=== PATIENT | female | born 1940 | race African-American/Black ===

== ENCOUNTER 2017-07-01 06:19 | Inpatient (IN) | payer BC ==
--- NOTE | 2017-07-01 06:29 | PDOC ---
Attending Attestation - Resident Resident Name: Giuliana Yarbrough - ED Attending Attestation I have performed the following: I have examined & evaluated the patient, The case was reviewed & discussed with the resident, I agree w/resident's findings & plan, Exceptions are as noted
[2017-07-01 06:39] VITALS: BMI 25.4
--- NOTE | 2017-07-01 08:04 | PDOC ---
History of Present Illness - General Chief Complaint: Constipation Stated Complaint: ABD PAIN Time Seen by Provider: 07/01/17 06:24 History Source: Patient - History of Present Illness Timing/Duration: reports: other Pain Radiation: reports: chest Past History - Past Medical History Allergies/Adverse Reactions: Allergies Allergy/AdvReac Type Severity Reaction Status Date / Time codeine Allergy Verified 07/01/17 06:35 lisinopril Allergy Verified 07/01/17 06:35 Sulfa (Sulfonamide Allergy Verified 07/01/17 06:35 Antibiotics) [Sulfa(Sulfonamide Antibiotics)] Home Medications: Ambulatory Orders Nifedipine [Nifedical Xl] 60 mg PO DAILY 08/13/14 Aspirin [ASA -] 81 mg PO DAILY 04/17/15 Atenolol/Chlorthalidone [Atenolol-Chlorthalidone 50-25] 1 each PO DAILY Glipizide Xl [Glucotrol Xl -] 2.5 mg PO DAILY 07/01/17 Simvastatin [Zocor -] 20 mg PO DAILY 07/01/17 Cancer: Yes (BREAST (Lt)) Cardiac Disorders: Yes (angina) Diabetes: Yes (NO MEDS) HTN: Yes Hypercholesterolemia: Yes - Psycho/Social/Smoking Cessation Hx Anxiety: No Suicidal Ideation: No Smoking Status: No Smoking History: Never smoked Have you smoked in the past 12 months: No Number of Cigarettes Smoked Daily: 20 If you are a former smoker, when did you quit?: 20 yrs ago Information on smoking cessation initiated: No Hx Alcohol Use: No Drug/Substance Use Hx: No Substance Use Type: None Hx Substance Use Treatment: No Review of Systems - Review of Systems Constitutional: No: Chills, Fever Respiratory: No: Cough, Shortness of Breath Cardiac (ROS): Yes: Chest Pain ABD/GI: Yes: Constipated. No: Blood Streaked Bowels, Diarrhea, Nausea, Vomiting , Tarry Stools : No: Dysuria *Physical Exam - Vital Signs Last Vital Signs Temp Pulse Resp BP Pulse Ox 98.0 F 70 18 153/89 99 07/01/17 06:35 07/01/17 06:35 07/01/17 06:35 07/01/17 06:35 07/01/17 06:35 - Physical Exam General Appearance: Yes: Appropriately Dressed. No: Apparent Distress HEENT: positive: Normal Voice Neck: positive: Supple Respiratory/Chest: positive: Lungs Clear, Normal Breath Sounds. negative: Respiratory Distress Cardiovascular: positive: Regular Rate, S1, S2 Gastrointestinal/Abdominal: positive: Soft. negative: Tender Musculoskeletal: negative: CVA Tenderness Extremity: positive: Normal Inspection Integumentary: positive: Dry, Warm Neurologic: positive: Fully Oriented, Alert, Normal Mood/Affect ED Treatment Course - LABORATORY CBC & Chemistry Diagram: 07/01/17 07:30 07/01/17 07:30 - RADIOLOGY Radiology Studies Ordered: Category Date Time Status ABDOMEN-KUB FLAT PLATE [RAD] Stat Radiology 07/01/17 07:23 Ordered CHEST PA & LAT [RAD] Stat Radiology 07/01/17 07:23 Ordered Medical Decision Making - Medical Decision Making 07/01/17 07:29 76 -year-old female, history of hypertension, HLD, NIDDM, CAD, NM, left breast cancer status post mastectomy, tobacco smoke, here with abdominal pain. Patient states yesterday she began experiencing diffuse abdominal pain radiating to chest and b/l upper extremities that worsened today at 4 AM, describes pain as a tightening sensation, 5 out of 10, intermittent and last for 5 minutes w/ no exacerbating/alleviating factors. Denies shortness of breath, diaphoresis, nausea, vomiting. No palpitations, leg pain or swelling. Patient states she is concerned because of her NM, but not certain if NM presented similarly. Patient also suffers from constipation occasionally and took a laxative yesterday. No hematochezia, melena or diarrhea See exam R/o ACS Unlikely PE or dissection Stable w/ unremarkable exam -ekg -cxr -labs -reassess 07/01/17 09:[address] depression (changed compared to EKG 2014) w/ trop of 0.1. Pt pain free currently and remains stable on monitor in ED. Will initiate treatment protocol for NSTEMI w/ the exception of BB as pt nadine to 57 on ekg. Rpt EKG in progress. Will consult w/ cards at this time. Of note, pt was admitted for CP in 2014 and had negative stress test and echo. As per records, patient has had multiple cardiac catheters with no stent placement, last time in 2009 at [facility]. 07/01/17 09:[address] Suggs of cards who agrees with treatment. Also requesting a dose of lisinopril in ED but informed that patient is allergic ( angioedema). Daron requesting that I fax initial and repeat EKG ([phone]). Of note, repeat EKG with similar pattern of ST depression, however depressions not as deep as initial EKG. Patient at some point became hypoxic to 90% on RA on monitor. Initiated oxygen w/ improvement. Will contact PMD and admit at this time 07/01/17 10:00 07/01/17 10:03 Elevated LFTs, new for pt. Congestive changes on CXR. BNP >2K, no old to compare. Will defer diuresis to inpt team/cards. Of note, lungs clear on exam and no edema 07/01/17 11:17 Case d/w Dr Harley and pt admitted to tele 07/01/17 11:19 *DC/Admit/Observation/Transfer Diagnosis at time of Disposition: NSTEMI (non-ST elevated myocardial infarction) Chest pain Qualifiers: Chest pain type: unspecified Qualified Code(s): R07.9 - Chest pain, unspecified - Discharge Dispostion Condition at time of disposition: Fair Admit: Yes
[2017-07-01 08:11] LABS: MCH 26.4 pg (25.7-33.7); MEAN CELL VOLUME 79.8 fl (80-96); MEAN PLT VOLUME 8.7 fl (7.5-11.1); PLATELET COUNT 250 K/MM3 (134-434); RDW 15.3 % (11.6-15.6); WHITE BLOOD COUNT 4.6 K/mm3 (4.0-10.0)
[2017-07-01 08:19] LABS: ALBUMIN 3.3 g/dl (3.4-5.0); ANION GAP 8 (8-16); BILIRUBIN,TOTAL 0.5 mg/dL (0.2-1.0); CALCIUM 8.9 mg/dL (8.5-10.1); CO2 29 mmol/L (21-32); CREATININE 0.8 mg/dL (0.55-1.02); GLUCOSE,RANDOM 109 mg/dL (74-106); SGPT/ALT 123 U/L (12-78); TOT PROT 6.9 g/dl (6.4-8.2)
[2017-07-01 08:21] LABS: ALK PHOS 110 U/L (45-117)
[2017-07-01 08:27] LABS: CPK 122 IU/L (26-192); SGOT/AST 122 U/L (15-37)
[2017-07-01] MEDS ORDERED: ASPIRIN 325 MG ENTERIC COATED TABLET (FP) PO ONE (08:46)
[2017-07-01] MEDS ORDERED: CLOPIDOGREL BISULFATE 300 MG TABLET PO ONE (08:53)
[2017-07-01] MEDS ORDERED: ATORVASTATIN CA 80 MG TABLET (FP) PO ONE (08:54)
[2017-07-01] MEDS ORDERED: METOPROLOL TARTRATE 50 MG TABLET (FP) PO ONE (08:55)
--- NOTE | 2017-07-01 08:59 | PDOC ---
*Physical Exam - Vital Signs Last Vital Signs Temp Pulse Resp BP Pulse Ox 98.0 F 70 18 153/89 99 07/01/17 06:35 07/01/17 06:35 07/01/17 06:35 07/01/17 06:35 07/01/17 06:49 Heart Score/ECG Review - History History: Moderately suspicious - Electrocardiogram EKG: Significant ST-depression - Age Age: >/= 65 - Risk Factors Risk Factors Heart Score: Yes Hx Hypercholesterolemia, Yes Hx Hypertension, Yes Hx Diabetes Based on the list above the patient has:: >/=3 risk factors or Hx atherosclerotic disease - Troponin Troponin: 1-3x normal limit - Score Heart Score - Total: 8 - ECG Impressions Comment:: 07/01/17 08:56 ST depressions inferiorly, no ST elevations, TWI inferolaterally not seen on prior EKG in 2014. intervals wnl. Rate 57. ED Treatment Course - LABORATORY CBC & Chemistry Diagram: 07/01/17 07:30 07/01/17 07:30 - ADDITIONAL ORDERS Additional order review: Laboratory Results 07/01/17 07/01/17 07:30 07:30 Sodium 140 Potassium 3.7 Chloride 103 Carbon Dioxide 29 Anion Gap 8 BUN 13 D Creatinine 0.8 Creat Clearance w eGFR > 60 Random Glucose 109 H Calcium 8.9 Total Bilirubin 0.5 D AST 122 H D ALT 123 H D Alkaline Phosphatase 110 D Creatine Kinase 122 Troponin I 0.10 H Total Protein 6.9 Albumin 3.3 L Blood Type O POSITIVE Antibody Screen Negative 07/01/17 07:30 RBC 4.03 MCV 79.8 L MCHC 33.0 RDW 15.3 MPV 8.7 Medical Decision Making - Medical Decision Making 07/01/17 08:56 76 F with HTN, DM, HLD, CAD/DC presents with epigastric burning radiating to her chest and arms. Pt now pain-free. EKG with new inferior/lateral TWI and ST depressions. Concerning for Acute DC. Low suspicion for dissection as pt with no active pain. No evidence of CHF on exam. - Labs, trops - repeat EKG - CXR - Admit *DC/Admit/Observation/Transfer Diagnosis at time of Disposition: NSTEMI (non-ST elevated myocardial infarction) Chest pain Qualifiers: Chest pain type: unspecified Qualified Code(s): R07.9 - Chest pain, unspecified - Discharge Dispostion Condition at time of disposition: Fair - Attestations Physician Attestion: 07/01/17 12:57 I, Dr. Deangelo Soto MD, attest that this document has been prepared under my direction and personally reviewed by me in its entirety. I further attest, that it accurately reflects all work, treatment, procedures and medical decision -making performed by me.
[2017-07-01] MEDS ORDERED: HEPARIN NA (PORCINE) 5,000 UNITS/ML 1ML VIAL IVPUSH PRN (09:00)
[2017-07-01] MEDS ORDERED: CLOPIDOGREL BISULFATE 300 MG TABLET ONE (09:07)
[2017-07-01] MEDS ORDERED: ASPIRIN 325 MG TABLET ONE (09:07)
[2017-07-01] MEDS ORDERED: ATORVASTATIN CA 80 MG TABLET (FP) ONE (09:08)
[2017-07-01] MEDS ORDERED: HEPARIN INFUSION - 500 ML IVPB ONE (09:15)
[2017-07-01] MEDS: HEPARIN INFUSION - 500 ML IVPB SCH ×2 (09:31→19:10)
--- NOTE | 2017-07-01 09:35 | CON.CARD ---
Consult Consult Specialty:: cardiology Reason for Consultation:: chest pain; hx VT - History of Present Illness History of Present Illness: 76 yr old black woman with PMHx VT (reportedly nonobstructive CAD on angiogram 2009, and normal stress MIBI 2014), HTN, hyperlipidemida, DM, now admitted with pressure-like chest pain. - History Source History Provided By: Patient, Family Member, Medical Record Limitations to Obtaining History: No Limitations - Past Medical History Cardio/Vascular: Yes: CAD, HTN, Hyperlipdemia, VT Renal/: No: Renal Failure Reproductive: Yes: Postmenopausal ...: No Endocrine: Yes: Diabetes Mellitus - Past Surgical History Past Surgical History: Yes: Mastectomy (Left) - Alcohol/Substance Use Hx Alcohol Use: No History of Substance Use: reports: None - Smoking History Smoking history: Never smoked Have you smoked in the past 12 months: No Aproximately how many cigarettes per day: 20 If you are a former smoker, when did you quit?: 20 yrs ago - Social History ADL: Independent Occupation: Disabled History of Recent Travel: No Home Medications - Allergies Allergies/Adverse Reactions: Allergies Allergy/AdvReac Type Severity Reaction Status Date / Time codeine Allergy Verified 07/01/17 06:35 lisinopril Allergy Verified 07/01/17 06:35 Sulfa (Sulfonamide Allergy Verified 07/01/17 06:35 Antibiotics) [Sulfa(Sulfonamide Antibiotics)] - Home Medications Home Medications: Ambulatory Orders Nifedipine [Nifedical Xl] 60 mg PO DAILY 08/13/14 Aspirin [ASA -] 81 mg PO DAILY 04/17/15 Atenolol/Chlorthalidone [Atenolol-Chlorthalidone 50-25] 1 each PO DAILY Glipizide Xl [Glucotrol Xl -] 2.5 mg PO DAILY 07/01/17 Simvastatin [Zocor -] 20 mg PO DAILY 07/01/17 Family Disease History - Family Disease History Family Disease History: Diabetes: Father ( age 50 from DM complications), Heart Disease: Mother ( age 72 CVA/VT), CA: Sister (3 sisters from breast, bone, and unknown) Review of Systems - Review of Systems Constitutional: reports: No Symptoms Eyes: reports: No Symptoms HENT: reports: No Symptoms Neck: reports: No Symptoms Cardiovascular: reports: Chest Pain, Shortness of Breath Respiratory: reports: SOB on Exertion Gastrointestinal: reports: Nausea Genitourinary: reports: No Symptoms Breasts: reports: No Symptoms Reported Musculoskeletal: reports: No Symptoms, Other (hx left leg fracture-->decreased ability to ambulate) Integumentary: reports: No Symptoms Neurological: reports: No Symptoms Psychiatric: reports: No Symptoms - Risk Factors Known Risk Factors: Yes: Age, Hypercholesterolemia, Hypertension, Physical Inactivity, Prior VT /Emb Stroke, Race Vital Signs: Vital Signs Temperature 98.0 F 07/01/17 06:35 Pulse Rate 70 07/01/17 06:35 Respiratory Rate 18 07/01/17 06:35 Blood Pressure 153/89 07/01/17 06:35 O2 Sat by Pulse Oximetry (%) 99 07/01/17 06:49 Constitutional: Yes: Calm Eyes: Yes: WNL HENT: Yes: WNL Neck: Yes: WNL Respiratory: Yes: Regular Gastrointestinal: Yes: Soft Renal/: No: Anuria Cardiovascular: Yes: Regular Rate and Rhythm JVD: No Carotid Bruit: No PMI: Non-Displaced Heart Sounds: Yes: S1, S2, S4 Murmur: Yes: Systolic Murmur, Grade 2 Musculoskeletal: Yes: Joint Stiffness (left ankle (s/p fracture years ago).) Extremities: Yes: WNL Edema: No Peripheral Pulses WNL: Yes Integumentary: Yes: WNL Neurological: Yes: WNL Psychiatric: Yes: WNL - Other Data Labs, Other Data: CBC, BMP 07/01/17 07:30 07/01/17 07:30 Troponin, BNP 07/01/17 07:30 Troponin I 0.10 H Troponin, BNP 07/01/17 07:30 Troponin I 0.10 H Prior Cardiac Procedures: Cardiac Catheterization Ejection Fraction %: LVEF > or = 40 % Imaging - Results Chest X-ray: Image Reviewed (no acute pathology) Problem List - Problems (1) Chest pain Assessment/Plan: Presently chest-pain free. EKG : ?new STT depression. TNI 0.1. Plan: ASA, clopidogrel, and IV heparin (or Lovenox). Statin (however, use lower dose, and follow already-elevated LFTS). Serial EKG and TNI. ECHO for LVEF, wall motion, valve status. TSH WNL. Pt has been on atenolol; mildly bradycardic. Add lisinopril (HTN; DM; ACS). Code(s): R07.9 - CHEST PAIN, UNSPECIFIED Qualifiers: Chest pain type: unspecified Qualified Code(s): R07.9 - Chest pain, unspecified (2) Diabetes mellitus Code(s): E11.9 - TYPE 2 DIABETES MELLITUS WITHOUT COMPLICATIONS (3) Elevated blood pressure Code(s): I10 - ESSENTIAL (PRIMARY) HYPERTENSION (4) Headache Code(s): R51 - HEADACHE (5) Hyperlipidemia Code(s): E78.5 - HYPERLIPIDEMIA, UNSPECIFIED (6) Elevated LFTs Assessment/Plan: f/u etiology. Pt nees statin, but lower dose, and watch LFT levels and workup. Code(s): R79.89 - OTHER SPECIFIED ABNORMAL FINDINGS OF BLOOD CHEMISTRY
--- NOTE | 2017-07-01 10:14 | EKG ---
Test Reason : Blood Pressure : / mmHG Vent. Rate : 057 BPM Atrial Rate : 057 BPM P-R Int : 202 ms QRS Dur : 096 ms QT Int : 514 ms P-R-T Axes : 069 -36 -86 degrees QTc Int : 500 ms SINUS BRADYCARDIA LEFT AXIS DEVIATION INCOMPLETE RIGHT BUNDLE BRANCH BLOCK SEPTAL INFARCT , AGE UNDETERMINED LEFT ATRIAL ENLARGEMENT ABNORMAL ECG WHEN COMPARED WITH ECG OF 18-APR-2015 ST-T ABNORMALITIES IN II IIIaVF V4-V6 COMPATIBLE WITH ISCHEMIA. REPEAT EKG IF CLINICALLY INDICATED Confirmed by GILBERTO PISANO MD ([id number]) on 07/01/2017 10:13:29 AM Referred By: Confirmed By:GILBERTO PISANO MD
--- NOTE | 2017-07-01 10:16 | EKG ---
Test Reason : Blood Pressure : / mmHG Vent. Rate : 057 BPM Atrial Rate : 057 BPM P-R Int : 202 ms QRS Dur : 100 ms QT Int : 504 ms P-R-T Axes : 068 -51 -79 degrees QTc Int : 490 ms SINUS BRADYCARDIA LEFT ANTERIOR FASCICULAR BLOCK LEFT ATRIAL ENLARGEMENT AGE UNDETERMINED ANTEROSEPTAL VT PROLONGED QT ABNORMAL ECG WHEN COMPARED WITH ECG OF 01-JUL-2017 08:15, NO SIGNIFICANT CHANGE WAS FOUND REPEAT EKG IF CLINICALLY INDICATED Confirmed by GILBERTO PISANO MD ([id number]) on 07/01/2017 10:15:57 AM Referred By: Confirmed By:GILBERTO PISANO MD
[2017-07-01 13:05] LABS: TROPONIN I 0.1 ng/ml (0.00-0.05)
--- NOTE | 2017-07-01 13:12 | HP ---
Admitting History and Physical - Primary Care Physician PCP: Manjula Harley - Admission Chief Complaint: chest pain History of Present Illness: ER HISTORY - Medical Decision Making 07/01/17 07:29 76 -year-old female, history of hypertension, HLD, NIDDM, CAD, MT, left breast cancer status post mastectomy, tobacco smoke, here with abdominal pain. Patient states yesterday she began experiencing diffuse abdominal pain radiating to chest and b/l upper extremities that worsened today at 4 AM, describes pain as a tightening sensation, 5 out of 10, intermittent and last for 5 minutes w/ no exacerbating/alleviating factors. Denies shortness of breath, diaphoresis, nausea, vomiting. No palpitations, leg pain or swelling. Patient states she is concerned because of her MT, but not certain if MT presented similarly. Patient also suffers from constipation occasionally and took a laxative yesterday. No hematochezia, melena or diarrhea Pt seen by me in ER C/O constipation and abdominal pain today which radiated to chest wall with SOB and tightness of chest No palpitations or dizziness Now she feels better Found to have NSTEMI , on heparin drip History Source: Patient - Past Medical History Cardiovascular: Yes: CAD, HTN, Hyperlipdemia, MT Heme/Onc: Yes: Cancer (Left Breast) Endocrine: Yes: Diabetes Mellitus - Past Surgical History Past Surgical History: Yes: Mastectomy (Left) - Smoking History Smoking history: Never smoked Have you smoked in the past 12 months: No Aproximately how many cigarettes per day: 20 If you are a former smoker, when did you quit?: 20 yrs ago - Alcohol/Substance Use Hx Alcohol Use: No History of Substance Use: reports: None - Social History ADL: Independent Occupation: Disabled History of Recent Travel: No Home Medications - Allergies Allergies/Adverse Reactions: Allergies Allergy/AdvReac Type Severity Reaction Status Date / Time codeine Allergy Verified 07/01/17 06:35 lisinopril Allergy Verified 07/01/17 06:35 Sulfa (Sulfonamide Allergy Verified 07/01/17 06:35 Antibiotics) [Sulfa(Sulfonamide Antibiotics)] - Home Medications Home Medications: Ambulatory Orders Nifedipine [Nifedical Xl] 60 mg PO DAILY 08/13/14 Aspirin [ASA -] 81 mg PO DAILY 04/17/15 Atenolol/Chlorthalidone [Atenolol-Chlorthalidone 50-25] 1 each PO DAILY Glipizide Xl [Glucotrol Xl -] 2.5 mg PO DAILY 07/01/17 Simvastatin [Zocor -] 20 mg PO DAILY 07/01/17 Family Disease History - Family Disease History Family Disease History: Diabetes: Father ( age 50 from DM complications), Heart Disease: Mother ( age 72 CVA/MT), CA: Sister (3 sisters from breast, bone, and unknown) Review of Systems - Review of Systems Constitutional: denies: Chills, Fever, Loss of Appetite, Weakness Cardiovascular: reports: Chest Pain, Shortness of Breath. denies: Palpitations Respiratory: denies: Cough Gastrointestinal: reports: Abdominal Pain, Constipation. denies: Nausea Physical Examination Vital Signs: Vital Signs Temperature 98.0 F 07/01/17 06:35 Pulse Rate 62 07/01/17 12:48 Respiratory Rate 14 07/01/17 12:48 Blood Pressure 140/65 07/01/17 12:48 O2 Sat by Pulse Oximetry (%) 97 07/01/17 12:48 Constitutional: Yes: No Distress, Calm Cardiovascular: Yes: Regular Rate and Rhythm Respiratory: Yes: Diminished Gastrointestinal: Yes: Normal Bowel Sounds, Soft. No: Distention, Tenderness Edema: No Psychiatric: Yes: Alert, Oriented Labs: Laboratory Last Values WBC 4.6 K/mm3 (4.0-10.0) 07/01/17 07:30 RBC 4.03 M/mm3 (3.60-5.2) 07/01/17 07:30 Hgb 10.6 GM/dL (10.7-15.3) L 07/01/17 07:30 Hct 32.1 % (32.4-45.2) L 07/01/17 07:30 MCV 79.8 fl (80-96) L 07/01/17 07:30 MCH 26.4 pg (25.7-33.7) 07/01/17 07:30 MCHC 33.0 g/dl (32.0-36.0) 07/01/17 07:30 RDW 15.3 % (11.6-15.6) 07/01/17 07:30 Plt Count 250 K/MM3 (134-434) 07/01/17 07:30 MPV 8.7 fl (7.5-11.1) 07/01/17 07:30 Sodium 140 mmol/L (136-145) 07/01/17 07:30 Potassium 3.7 mmol/L (3.5-5.1) 07/01/17 07:30 Chloride 103 mmol/L (98-107) 07/01/17 07:30 Carbon Dioxide 29 mmol/L (21-32) 07/01/17 07:30 Anion Gap 8 (8-16) 07/01/17 07:30 BUN 13 mg/dL (7-18) D 07/01/17 07:30 Creatinine 0.8 mg/dL (0.55-1.02) 07/01/17 07:30 Creat Clearance w eGFR > 60 (>60) 07/01/17 07:30 POC Glucometer 93.88594 UNITS (()) 07/01/17 12:29 Random Glucose 109 mg/dL (74-106) H 07/01/17 07:30 Calcium 8.9 mg/dL (8.5-10.1) 07/01/17 07:30 Total Bilirubin 0.5 mg/dL (0.2-1.0) D 07/01/17 07:30 AST 122 U/L (15-37) H D 07/01/17 07:30 ALT 123 U/L (12-78) H D 07/01/17 07:30 Alkaline Phosphatase 110 U/L (45-117) D 07/01/17 07:30 Creatine Kinase 86 IU/L (26-192) 07/01/17 12:25 Troponin I 0.10 ng/ml (0.00-0.05) H 07/01/17 12:25 B-Natriuretic Peptide 2502.51 pg/ml (5-450) H 07/01/17 07:30 Total Protein 6.9 g/dl (6.4-8.2) 07/01/17 07:30 Albumin 3.3 g/dl (3.4-5.0) L 07/01/17 07:30 Blood Type O POSITIVE 07/01/17 07:30 Antibody Screen Negative 07/01/17 07:30 Imaging - Results Chest X-ray: Image Reviewed (interstitial lung markings) X-ray: Report Reviewed (xray abd- no obstruction) EKG: Image Reviewed (ST depressions diffuse) Problem List - Problems (1) Chest pain Code(s): R07.9 - CHEST PAIN, UNSPECIFIED Qualifiers: Chest pain type: unspecified Qualified Code(s): R07.9 - Chest pain, unspecified (2) NSTEMI (non-ST elevated myocardial infarction) Code(s): I21.4 - NON-ST ELEVATION (NSTEMI) MYOCARDIAL INFARCTION (3) Diabetes mellitus Code(s): E11.9 - TYPE 2 DIABETES MELLITUS WITHOUT COMPLICATIONS (4) Elevated LFTs Code(s): R79.89 - OTHER SPECIFIED ABNORMAL FINDINGS OF BLOOD CHEMISTRY Assessment/Plan PLAN Check cardiac enzymes Admit to telemetry On Heparin drip Cardiology eval Check sono abdomen for elevated LFT, check hepatitis profile Echo ordered check CBC on Heparin drip continue with home meds - check BGM , sliding scale DVT px-- Heparin infusion Time spent-- 40 min in assessment, plan and documentation
[2017-07-01 16:44] LABS: INR 1.12 (0.82-1.09); PROTHROMBIN TIME (PATIENT) 12.3 SEC (9.98-11.88)
[2017-07-01] MEDS: INSULIN SLIDING SCALE (NOVOLOG) 1 VIAL SQ SCH (16:53)
[2017-07-01 18:35] LABS: TROPONIN I 0.09 ng/ml (0.00-0.05)
[2017-07-01] MEDS: PANTOPRAZOLE 40 MG TABLET (FP) PO SCH (18:36)
[2017-07-01] MEDS: MAG HYDROX/AL HYDROX/SIMETH 30 ML UNIT-DOSE CUP PO SCH (18:36)
[2017-07-01] MEDS: ATORVASTATIN CA 10 MG TABLET (FP) PO SCH (21:15)
[2017-07-02] MEDS: MAG HYDROX/AL HYDROX/SIMETH 30 ML UNIT-DOSE CUP PO SCH ×4 (00:36→17:05)
[2017-07-02 00:56] LABS: TROPONIN I 0.18 ng/ml (0.00-0.05)
[2017-07-02] MEDS ORDERED: HEPARIN NA (PORCINE) 5,000 UNITS/ML 1ML VIAL IVPUSH PRN (02:01)
[2017-07-02] MEDS: HEPARIN INFUSION - 500 ML IVPB SCH ×4 (02:02→23:49)
[2017-07-02] MEDS: INSULIN SLIDING SCALE (NOVOLOG) 1 VIAL SQ SCH ×3 (06:21→16:43)
[2017-07-02] MEDS: glipiZIDE-XL 2.5 MG TAB.ER.24 PO SCH (06:52)
[2017-07-02 09:31] LABS: FREE T4 1.16 ng/dl (0.76-1.46); THYROID STIMULATING HORMONE 0.94 uIU/ml (0.358-3.74); TROPONIN I 0.12 ng/ml (0.00-0.05)
[2017-07-02] MEDS ORDERED: PT OWN MED DRAWER 7, Y5N ONE (09:42)
[2017-07-02] MEDS: NIFEdipine E.R 60 MG TABLET (UD) PO SCH (09:44)
[2017-07-02] MEDS: ASPIRIN 81 MG CHEWABLE TABLETS PO SCH (09:44)
[2017-07-02] MEDS: ATENOLOL 50 MG TABLET (FP) PO SCH ×2 (09:44→13:45)
[2017-07-02] MEDS: PANTOPRAZOLE 40 MG TABLET (FP) PO SCH (09:44)
[2017-07-02] MEDS ORDERED: PATIENT'S OWN MEDICATION (NON-FORMULARY) (Atenolol/Chlorthalidone [Atenolol-Chlorthalidone PO SCH (10:00)
[2017-07-02] MEDS ORDERED: WATER IVPB ONE (10:30)
[2017-07-02] MEDS ORDERED: DIPYRIDAMOLE STRESS TEST IVPB ONE (10:30)
[2017-07-02] MEDS ORDERED: DEXTROSE 5% IVPB ONE (10:30)
--- NOTE | 2017-07-02 12:42 | PN ---
Progress Note, Physician Chief Complaint: No distress Underwent stress test today - Current Medication List Current Medications: Active Medications Al Hydroxide/Mg Hydroxide (Mylanta Oral Suspension -) 30 ml PO Q6HPO [facility] Last Admin: 07/02/17 06:14 Dose: 30 ml Aspirin (Asa -) 81 mg PO DAILY [facility] Last Admin: 07/02/17 09:44 Dose: 81 mg Atenolol (Tenormin -) 50 mg PO DAILY [facility] Atorvastatin Calcium (Lipitor -) 10 mg PO HS [facility] Last Admin: 07/01/17 21:15 Dose: 10 mg Chlorthalidone (Hygroton -) 25 mg PO DAILY [facility] Glipizide (Glucotrol Xl -) 2.5 mg PO DAILY@0700 [facility] Last Admin: 07/02/17 06:52 Dose: 2.5 mg Heparin Sodium (Porcine) (Heparin -) 4,000 unit IVPUSH PRN PRN PRN Reason: Heparin Heparin Sodium (Porcine) (Heparin -) 5,000 unit IVPUSH PRN PRN Last Admin: 07/02/17 02:06 Dose: 5,000 unit Heparin Sodium (Porcine) (Heparin -) 1,000 unit IVPUSH PRN PRN Heparin Sodium/Dextrose (Heparin Infusion -) 500 mls @ 16 mls/hr IVPB TITR SHAUN ; 800 UNITS/HR PRN Reason: Protocol Last Admin: 07/02/17 02:02 Dose: 13 mls/hr Insulin Aspart (Novolog Vial Sliding Scale -) 1 vial SQ TIDAC [facility] PRN Reason: Protocol Last Admin: 07/02/17 06:21 Dose: Not Given Nifedipine (Procardia Xl -) 60 mg PO DAILY [facility] Last Admin: 07/02/17 09:44 Dose: 60 mg Pantoprazole Sodium (Protonix -) 40 mg PO DAILY [facility] Last Admin: 07/02/17 09:44 Dose: 40 mg - Objective Vital Signs: Vital Signs Temperature 97.9 F 07/02/17 06:00 Pulse Rate 73 07/02/17 06:00 Respiratory Rate 20 07/02/17 06:00 Blood Pressure 142/68 07/02/17 06:00 O2 Sat by Pulse Oximetry (%) 93 L 07/01/17 20:22 Constitutional: Yes: No Distress Cardiovascular: Yes: Regular Rate and Rhythm Respiratory: Yes: CTA Bilaterally Gastrointestinal: Yes: Normal Bowel Sounds, Soft, Abdomen, Obese. No: Tenderness Edema: No Neurological: Yes: Alert, Oriented Labs: INR, PTT INR 1.12 (0.82-1.09) 07/01/17 15:34 Problem List - Problems (1) Chest pain Code(s): R07.9 - CHEST PAIN, UNSPECIFIED Qualifiers: Chest pain type: unspecified Qualified Code(s): R07.9 - Chest pain, unspecified (2) NSTEMI (non-ST elevated myocardial infarction) Code(s): I21.4 - NON-ST ELEVATION (NSTEMI) MYOCARDIAL INFARCTION (3) Diabetes mellitus Code(s): E11.9 - TYPE 2 DIABETES MELLITUS WITHOUT COMPLICATIONS (4) Elevated LFTs Code(s): R79.89 - OTHER SPECIFIED ABNORMAL FINDINGS OF BLOOD CHEMISTRY Assessment/Plan PLAN cardiac enzymes noted, decreased trend telemetry Off Heparin drip per cardiology-- awaiting stress test results Cardiology eval appreciated sono abdomen for elevated LFT-- noted hepatitis profile- pending Echo d/w pt DVT px-- Heparin infusion
[2017-07-02] MEDS: CHLORTHALIDONE 25 MG TABLET PO SCH (13:44)
[2017-07-02] MEDS ORDERED: POLYETHYLENE GLYCOL 3350 119 GM BTL PO PRN (13:48)
[2017-07-02] MEDS: HEPARIN NA (PORCINE) 5,000 UNITS/ML 1ML VIAL IVPUSH PRN (14:23)
[2017-07-02] MEDS: ATORVASTATIN CA 10 MG TABLET (FP) PO SCH (23:32)
[2017-07-03] MEDS: glipiZIDE-XL 2.5 MG TAB.ER.24 PO SCH (06:11)
[2017-07-03] MEDS: INSULIN SLIDING SCALE (NOVOLOG) 1 VIAL SQ SCH ×2 (06:11→11:55)
[2017-07-03] MEDS: MAG HYDROX/AL HYDROX/SIMETH 30 ML UNIT-DOSE CUP PO SCH ×3 (06:11→11:56)
[2017-07-03 07:43] LABS: ALBUMIN 3.5 g/dl (3.4-5.0); ALK PHOS 94 U/L (45-117); ANION GAP 9 (8-16); BILIRUBIN,TOTAL 0.9 mg/dL (0.2-1.0); CALCIUM 8.8 mg/dL (8.5-10.1); CO2 32 mmol/L (21-32); CREATININE 0.9 mg/dL (0.55-1.02); GLUCOSE,RANDOM 107 mg/dL (74-106); SGOT/AST 40 U/L (15-37); SGPT/ALT 75 U/L (12-78); TOT PROT 7.3 g/dl (6.4-8.2)
[2017-07-03 08:22] LABS: MCH 26.4 pg (25.7-33.7); MCHC 33.2 g/dl (32.0-36.0); MEAN CELL VOLUME 79.5 fl (80-96); PLATELET COUNT 277 K/MM3 (134-434); RDW 14.9 % (11.6-15.6); WHITE BLOOD COUNT 6.6 K/mm3 (4.0-10.0)
--- NOTE | 2017-07-03 09:01 | PN ---
Progress Note, Physician Chief Complaint: Pt denies chest pain or dyspnea. History of Present Illness: 76 yr old black woman with PMHx MT (reportedly nonobstructive CAD on angiogram 2009, and normal stress MIBI 2014), HTN, hyperlipidemida, DM, now admitted with pressure-like chest pain. - Current Medication List Current Medications: Active Medications Al Hydroxide/Mg Hydroxide (Mylanta Oral Suspension -) 30 ml PO Q6HPO [facility] Last Admin: 07/03/17 06:11 Dose: Not Given Aspirin (Asa -) 81 mg PO DAILY [facility] Last Admin: 07/02/17 09:44 Dose: 81 mg Atenolol (Tenormin -) 50 mg PO DAILY [facility] Last Admin: 07/02/17 13:45 Dose: 50 mg Atorvastatin Calcium (Lipitor -) 10 mg PO HS [facility] Last Admin: 07/02/17 23:32 Dose: 10 mg Chlorthalidone (Hygroton -) 25 mg PO DAILY [facility] Last Admin: 07/02/17 13:44 Dose: 25 mg Glipizide (Glucotrol Xl -) 2.5 mg PO DAILY@0700 [facility] Last Admin: 07/03/17 06:11 Dose: Not Given Heparin Sodium (Porcine) (Heparin -) 4,000 unit IVPUSH PRN PRN PRN Reason: Heparin Heparin Sodium (Porcine) (Heparin -) 5,000 unit IVPUSH PRN PRN Last Admin: 07/02/17 02:06 Dose: 5,000 unit Heparin Sodium (Porcine) (Heparin -) 1,000 unit IVPUSH PRN PRN Last Admin: 07/02/17 14:23 Dose: 1,000 unit Heparin Sodium/Dextrose (Heparin Infusion -) 500 mls @ 16 mls/hr IVPB TITR SHAUN ; 800 UNITS/HR PRN Reason: Protocol Last Admin: 07/02/17 23:49 Dose: Not Given Insulin Aspart (Novolog Vial Sliding Scale -) 1 vial SQ TIDAC [facility] PRN Reason: Protocol Last Admin: 07/03/17 06:11 Dose: Not Given Nifedipine (Procardia Xl -) 60 mg PO DAILY [facility] Last Admin: 07/02/17 09:44 Dose: 60 mg Pantoprazole Sodium (Protonix -) 40 mg PO DAILY [facility] Last Admin: 07/02/17 09:44 Dose: 40 mg Polyethylene Glycol (Miralax (For Daily Use) -) 17 gm PO DAILY PRN PRN Reason: CONSTIPATION - Objective Vital Signs: Vital Signs Temperature 98.3 F 07/03/17 06:00 Pulse Rate 64 07/03/17 06:00 Respiratory Rate 18 07/03/17 06:00 Blood Pressure 130/57 07/03/17 06:00 O2 Sat by Pulse Oximetry (%) 94 L 07/02/17 21:00 Constitutional: Yes: Calm Eyes: Yes: WNL HENT: Yes: WNL Neck: Yes: WNL Cardiovascular: Yes: Regular Rate and Rhythm Respiratory: Yes: Regular Gastrointestinal: Yes: Soft ...Rectal Exam: Yes: Deferred Genitourinary: No: Anuria Breast(s): Yes: WNL Musculoskeletal: Yes: WNL Extremities: Yes: WNL Edema: No Peripheral Pulses WNL: Yes Integumentary: Yes: WNL Neurological: Yes: WNL Psychiatric: Yes: WNL Labs: CBC, BMP 07/03/17 05:35 07/03/17 05:35 INR, PTT INR 1.12 (0.82-1.09) 07/01/17 15:34 Problem List - Problems (1) Chest pain Assessment/Plan: Stress Persantine MIBI: myocardial ischemia (moderately intense, moderate area of the juan manuel-apical wall); gated studies showed preserved LVEF. TNI 0.1-->0.18. Pt agrees to undergo coronary angiogram. Pt's son is at bedside. ECHO: normal LVEF; abnormal diastolic compliance; moderate MR; mild-moderate TX ; severe TR, with severe pulmonary HTN. Code(s): R07.9 - CHEST PAIN, UNSPECIFIED Qualifiers: Chest pain type: unspecified Qualified Code(s): R07.9 - Chest pain, unspecified (2) Diabetes mellitus Code(s): E11.9 - TYPE 2 DIABETES MELLITUS WITHOUT COMPLICATIONS (3) Elevated blood pressure Code(s): I10 - ESSENTIAL (PRIMARY) HYPERTENSION (4) Headache Code(s): R51 - HEADACHE (5) Hyperlipidemia Code(s): E78.5 - HYPERLIPIDEMIA, UNSPECIFIED (6) Elevated LFTs Code(s): R79.89 - OTHER SPECIFIED ABNORMAL FINDINGS OF BLOOD CHEMISTRY
[2017-07-03] MEDS ORDERED: PT OWN MED DRAWER 7, Y5N ONE (09:09)
[2017-07-03 09:45] LABS: MAGNESIUM 2.4 mg/dL (1.8-2.4)
[2017-07-03 10:44] VITALS: BP 108/60; PULSE 68; TEMP 98.2
[2017-07-03] MEDS ORDERED: CLOPIDOGREL BISULFATE 75 MG TABLET (FP) PO SCH (10:45)
[2017-07-03] MEDS: HEPARIN NA (PORCINE) 5,000 UNITS/ML 1ML VIAL IVPUSH PRN (10:48)
[2017-07-03] MEDS: HEPARIN INFUSION - 500 ML IVPB SCH (10:48)
[2017-07-03] MEDS: PANTOPRAZOLE 40 MG TABLET (FP) PO SCH (10:49)
[2017-07-03] MEDS: ASPIRIN 81 MG CHEWABLE TABLETS PO SCH (10:49)
[2017-07-03] MEDS: CHLORTHALIDONE 25 MG TABLET PO SCH (10:49)
[2017-07-03] MEDS: ATENOLOL 50 MG TABLET (FP) PO SCH (10:49)
[2017-07-03] MEDS: NIFEdipine E.R 60 MG TABLET (UD) PO SCH (10:49)
[2017-07-03] MEDS ORDERED: POTASSIUM CHLORIDE TABS 20 MEQ TABLET.ER (FP) PO ONE (12:00)
--- NOTE | 2017-07-03 13:52 | DS ---
Physical Examination Vital Signs: Vital Signs Temperature 98.2 F 07/03/17 10:00 Pulse Rate 68 07/03/17 10:00 Respiratory Rate 16 07/03/17 10:00 Blood Pressure 108/60 07/03/17 10:00 O2 Sat by Pulse Oximetry (%) 95 07/03/17 09:00 Constitutional: Yes: No Distress, Calm Cardiovascular: Yes: Regular Rate and Rhythm Respiratory: Yes: CTA Bilaterally Gastrointestinal: Yes: Normal Bowel Sounds, Soft. No: Distention, Tenderness Edema: No Labs: CBC, BMP 07/03/17 05:35 07/03/17 05:35 Discharge Summary Reason For Visit: NON-ST ELEVATION (NSTEMI), MYOCARDIAL INFARCTION Current Active Problems Chest pain (Acute) Elevated LFTs (Acute) NSTEMI (non-ST elevated myocardial infarction) (Acute) Hospital Course: ADmitted for abdominal pain and chest pain Found to have NSTEMI Started o Heparin drip Seen by cardiology Stress test abnormal-- transferred to [facility] for cardiac cath Condition: Fair - Instructions Disposition: TRANSFER ACUTE CARE/OTHER HOSP - Home Medications Comprehensive Discharge Medication List: Ambulatory Orders Nifedipine [Nifedical Xl] 60 mg PO DAILY 08/13/14 Aspirin [ASA -] 81 mg PO DAILY 04/17/15 Atenolol/Chlorthalidone [Atenolol-Chlorthalidone 50-25] 1 each PO DAILY Glipizide Xl [Glucotrol Xl -] 2.5 mg PO DAILY 07/01/17 Simvastatin [Zocor -] 20 mg PO DAILY 07/01/17
[2017-07-04 00:06] LABS: HEP B SURFACE AB Non Reactive (.)
== END 2017-07-03 12:14 | disposition short-term general hospital (02) | DRG 282 ==
LOC: JER 06:19 → JERBED 11:17 → J4W 15:58
PROVIDERS: ADMIT Internal Medicine; ATTEND Internal Medicine
DX: I21.4 Non-ST elevation (NSTEMI) myocardial infarction (principal); I25.10 Atherosclerotic heart disease of native coronary artery without angina pectoris; E78.4 Other hyperlipidemia; I10 Essential (primary) hypertension; E11.9 Type 2 diabetes mellitus without complications; I25.2 Old myocardial infarction; R10.9 Unspecified abdominal pain; I24.9 Acute ischemic heart disease, unspecified; F17.210 Nicotine dependence, cigarettes, uncomplicated; N95.8 Other specified menopausal and perimenopausal disorders; R51 Headache; R79.89 Other specified abnormal findings of blood chemistry; I27.2 Other secondary pulmonary hypertension; I08.1 Rheumatic disorders of both mitral and tricuspid valves; Z85.3 Personal history of malignant neoplasm of breast
CPT/HCPCS: 36415; 71020-TC; 74000-TC; 76705-TC; 78452-TC; 80053; 80061; 82977; 83721; 83735; 83880; 84439; 84443; 84484; 85027; 85610; 85730; 86704; 86706; 86708; 86803; 86850; 86900; 86901; 87340; 93005; 93010; 93017; 93306-TC; 99284-25; A9502; J1644

== ENCOUNTER 2017-10-17 14:17 | Emergency (ER) | payer BC, OTHER ==
[2017-10-17 14:44] VITALS: TEMP 97.9; BMI 25.4
--- NOTE | 2017-10-17 14:49 | PDOC ---
Rapid Medical Evaluation Chief Complaint: Lightheaded Time Seen by Provider: 10/17/17 14:46 Medical Evaluation: Allergies Allergy/AdvReac Type Severity Reaction Status Date / Time codeine Allergy Verified 10/17/17 14:40 lisinopril Allergy Verified 10/17/17 14:40 Sulfa (Sulfonamide Allergy Verified 10/17/17 14:40 Antibiotics) [Sulfa(Sulfonamide Antibiotics)] Vital Signs Temp Pulse Resp BP Pulse Ox 97.9 F 76 19 147/73 97 10/17/17 14:41 10/17/17 14:41 10/17/17 14:41 10/17/17 14:41 10/17/17 14:41 10/17/17 14:46 I performed a brief in-person evaluation of this patient. The patient presents with a chief complaint of: right shoulder pain x 3 weeks. Reports history of bursitis in that shoulder, states pain with movement of the arm. Denies injury or heavy lifting. Last treated with cortisone shots Pertinent physical exam findings: NAD lungs: cta bilat heart: s1s2 ext: right shoulder +ttp, able to ROM, no crepitus I have ordered the following: xray of right shoulder analgesia The patient will proceed to the Ed for further evaluation Discharge Disposition - Referrals Referrals: Manjula Harley MD [Primary Care Provider] - - Patient Instructions - Post Discharge Activity
--- NOTE | 2017-10-17 16:52 | PDOC ---
History of Present Illness - General Chief Complaint: Lightheaded Stated Complaint: DIZZINESS,SHOULDER PAIN Time Seen by Provider: 10/17/17 14:46 History Source: Patient Exam Limitations: No Limitations - History of Present Illness Initial Comments: This is a 76 YOF with h/o CHF (last exacerbation 2 months ago at [facility] and on Lasix), NIDDM (on glipizide), and HTN (on amlodipine) who presents for pre- syncopal episode at 1:30 pm. She notes having stood up from a meeting and walked over to get onto the bus when she had a fleeting sensation of lightheadedness and feeling like she may faint. She did not lose consciousness, lose her balance, fall, or sustain any injury as a result of this episode. She denies any concurrent chest pain, SOB, palpitations, numbness, tingling, weakness, vision trouble, or other symptoms during this episode. She also denies any recent fever, chills, nausea, vomiting, diarrhea, burning on urination, hematuria, black/bloody stool, or other symptoms. She has had similar prior episodes an unknown amount of time ago and states she does not know why she had these either. As a secondary complaint, the patient states she has been having exacerbated chronic right shoulder pain which has been keeping her from sleeping as well over the past three weeks. She has previously gotten steroid injections from her PMD for this same pain. Past History - Past Medical History Allergies/Adverse Reactions: Allergies Allergy/AdvReac Type Severity Reaction Status Date / Time codeine Allergy Verified 10/17/17 14:40 lisinopril Allergy Verified 10/17/17 14:40 Sulfa (Sulfonamide Allergy Verified 10/17/17 14:40 Antibiotics) [Sulfa(Sulfonamide Antibiotics)] Home Medications: Ambulatory Orders Aspirin [ASA -] 81 mg PO DAILY 04/17/15 Glipizide Xl [Glucotrol Xl -] 2.5 mg PO DAILY 07/01/17 Simvastatin [Zocor -] 20 mg PO DAILY 07/01/17 Amlodipine Besylate [Norvasc -] 5 mg PO DAILY 10/17/17 Cancer: Yes (BREAST (Lt)) Cardiac Disorders: Yes (angina) COPD: No Diabetes: Yes HTN: Yes Hypercholesterolemia: Yes - Suicide/Smoking/Psychosocial Hx Smoking Status: No Smoking History: Former smoker Have you smoked in the past 12 months: No Number of Cigarettes Smoked Daily: 20 If you are a former smoker, when did you quit?: 20 yrs ago Information on smoking cessation initiated: No Hx Alcohol Use: No Drug/Substance Use Hx: No Substance Use Type: None Hx Substance Use Treatment: No Review of Systems - Review of Systems Able to Perform ROS?: Yes Constitutional: No: Chills, Fever, Unexplained wgt Loss HEENTM: No: Nose Congestion, Throat Pain Respiratory: No: Cough, Shortness of Breath Cardiac (ROS): No: Chest Pain, Palpitations ABD/GI: No: Constipated, Diarrhea, Nausea, Vomiting : No: Burning, Dysuria Musculoskeletal: No: Back Pain, Neck Pain Integumentary: No: Bruising, Rash Neurological: Yes: Dizziness (lightheaded). No: Headache, Numbness, Tingling, Weakness Endocrine: No: Unexplained Weight Gain, Unexplained Weight Loss *Physical Exam - Vital Signs Last Vital Signs Temp Pulse Resp BP Pulse Ox 97.9 F 52 L 19 172/73 97 10/17/17 14:41 10/17/17 17:41 10/17/17 14:41 10/17/17 17:41 10/17/17 14:41 - Physical Exam General Appearance: Yes: Nourished, Appropriately Dressed, Other (pleasant elderly woman who is well-appearing and conversive and answering questions appropriately, appears comfortable). No: Apparent Distress HEENT: positive: EOMI, Normal Voice, Hearing Grossly Normal. negative: Scleral Icterus (R), Scleral Icterus (L), Nasal Congestion Neck: positive: Trachea midline, Supple. negative: Tender, Rigid Respiratory/Chest: positive: Lungs Clear, Normal Breath Sounds. negative: Respiratory Distress, Crackles, Rhonchi, Stridor, Wheezing Cardiovascular: positive: Regular Rhythm, Regular Rate, Edema (trace pitting edema BLE). negative: Murmur Gastrointestinal/Abdominal: positive: Normal Bowel Sounds, Soft. negative: Tender, Organomegaly, Pulsatile Mass, Guarding Musculoskeletal: positive: Normal Inspection. negative: Decreased Range of Motion, Vertebral Tenderness Extremity: positive: Normal Capillary Refill, Normal Inspection, Normal Range of Motion. negative: Tender, Cyanosis Integumentary: positive: Normal Color, Dry, Warm. negative: Erythema, Rash, Bruising Neurologic: positive: assistant drafter II-XII NML intact, Fully Oriented, Alert, Normal Mood/ Affect, Normal Response, Motor Strength 03/21 ED Treatment Course - LABORATORY CBC & Chemistry Diagram: 10/17/17 16:50 10/17/17 16:50 - ADDITIONAL ORDERS Additional order review: Laboratory Results 10/17/17 16:50 Sodium 140 Potassium 3.9 D Chloride 103 Carbon Dioxide 31 Anion Gap 6 L BUN 14 Creatinine 0.7 D Creat Clearance w eGFR > 60 Random Glucose 88 Calcium 9.8 Total Bilirubin 0.3 D AST 20 D ALT 20 D Alkaline Phosphatase 87 Total Protein 8.9 H D Albumin 4.4 D 10/17/17 16:50 RBC 4.70 MCV 80.4 MCHC 32.2 RDW 15.5 MPV 8.9 Neutrophils % 47.6 Lymphocytes % 41.3 H D Monocytes % 9.6 Eosinophils % 1.0 Basophils % 0.5 Medical Decision Making - Medical Decision Making Opting to not get cardiac enzymes because the patient has no CP or SOB, no continued sxs at all. Also patient's EKG shows no acute change (t-wave flattening and biphasic t- waves noted on prior EKGs). D/T the patient's h/o CHF she is in high-risk group according to [place] Syncope rules. However this is not a full syncopal event and was pre-syncopal lasting a few seconds. *DC/Admit/Observation/Transfer Diagnosis at time of Disposition: Lightheaded - Discharge Dispostion Disposition: HOME Condition at time of disposition: Stable Admit: No - Referrals Referrals: Manjula Harley MD [Primary Care Provider] - - Patient Instructions Additional Instructions: You were seen in the ER for lightheadedness and shoulder pain. We did an electrocardiogram of the heart which showed no new concerning findings. We also did lab work which had no new findings. We also did a shoulder x-ray which showed no new findings. Please follow up closely with your PCP or return to the ER for any new or worsening findings like passing out and losing consciousness, repeated episodes of lightheadedness or feeling faint, chest pain, shortness of breath, or other symptoms. - Post Discharge Activity
[2017-10-17 17:52] LABS: ALBUMIN 4.4 g/dl (3.4-5.0); ALK PHOS 87 U/L (45-117); ANION GAP 6 (8-16); BILIRUBIN,TOTAL 0.3 mg/dL (0.2-1.0); CALCIUM 9.8 mg/dL (8.5-10.1); CO2 31 mmol/L (21-32); CREATININE 0.7 mg/dL (0.55-1.02); GLUCOSE,RANDOM 88 mg/dL (74-106); SGOT/AST 20 U/L (15-37); SGPT/ALT 20 U/L (12-78); TOT PROT 8.9 g/dl (6.4-8.2)
--- NOTE | 2017-10-17 18:06 | PDOC ---
Attending Attestation - HPI HPI: 10/17/17 18:07 76 y.o female, with significant past medical history of CHF, NIDDM, and HTN who presents to the emergency room today after a brief, self-limiting, pre-syncopal episode of lightheadedness that occurred at 1:30pm this afternoon. <Anny Molina - Last Filed: 10/17/17 18:06> - Resident Resident Name: Emily Steele - ED Attending Attestation I have performed the following: I have examined & evaluated the patient, The case was reviewed & discussed with the resident, I agree w/resident's findings & plan, Exceptions are as noted - Physicial Exam PE: 10/17/17 18:13 Patient is awake and alert, resting comfortably, asymptomatic, without evidence of orthostasis. EXAMINATION CONSTITUTIONAL: Well-appearing; well-nourished; in no apparent distress HEAD: Normocephalic; atraumatic EYES: PERRL; EOM intact ENMT: External appears normal; normal oropharynx NECK: Supple; non-tender; no cervical lymphadenopathy CARD: Normal S1, S2; no murmurs, rubs, or gallops RESP: Normal chest excursion with respiration; breath sounds clear and equal bilaterally; no wheezes, rhonchi, or rales ABD: Soft, non-distended; non-tender; no palpable organomegaly, no palpable hernias EXT: Normal ROM in all four extremities; non-tender to palpation; distal pulses intact SKIN: Warm, dry, no rash NEURO: No focal neurological deficiencies. - Medical Decision Making 10/17/17 18:13 Patient is a well-appearing 76-year-old female with history of diabetes, CHF and hypertension who presents with a momentary presyncopal episode that lasted several seconds, and occurred after a prolonged period of sitting. Patient also complaining persistent right shoulder pain that she had been experiencing for several years. In the ER, patient is awake and alert, afebrile, hemodynamically stable. EKG shows sinus bradycardia at a rate of 57 with no evidence of acute ischemia or dysrhythmia. T-wave flattening is noted inferiorly which appeared flat or inverted and previous EKG; there is also strain pattern laterally which is also noted previously. Chest x-ray reveals no evidence of acute infiltrate or effusion. I do not suspect ACS at this time and no troponin will be obtained. I do not suspect a cardiac arrhythmia or PE either. Will observe patient. Will feed the patient. Will obtain CBC and CMP. If there is electrolyte abnormalities will correct them. Otherwise will discharge home with follow-up. <Dmitriy Rivas - Last Filed: 10/17/17 18:15>
[2017-10-17 19:01] LABS: BASOPHIL 0.5 % (0-2.0); MCH 25.9 pg (25.7-33.7); MCHC 32.2 g/dl (32.0-36.0); MEAN CELL VOLUME 80.4 fl (80-96); MEAN PLT VOLUME 8.9 fl (7.5-11.1); NEUTROPHILS 47.6 % (42.8-82.8); PLATELET COUNT 291 K/MM3 (134-434); RDW 15.5 % (11.6-15.6); WHITE BLOOD COUNT 5.3 K/mm3 (4.0-10.0)
[2017-10-17 19:32] VITALS: BP 146/72; PULSE 74
--- NOTE | 2017-10-18 09:21 | EKG ---
Test Reason : Blood Pressure : / mmHG Vent. Rate : 052 BPM Atrial Rate : 052 BPM P-R Int : 204 ms QRS Dur : 094 ms QT Int : 476 ms P-R-T Axes : 068 -26 009 degrees QTc Int : 442 ms SINUS BRADYCARDIA LEFT VENTRICULAR HYPERTROPHY WITH REPOLARIZATION ABNORMALITY ABNORMAL ECG WHEN COMPARED WITH ECG OF 01-JUL-2017 09:32, T WAVE INVERSION NO LONGER EVIDENT IN INFERIOR LEADS Confirmed by KAILASH NEGRETE, KEVIN ([id number]) on 10/18/2017 9:21:21 AM Referred By: Confirmed By:KEVIN LINDER MD
== END 2017-10-17 19:39 | disposition home or self-care (01) ==
LOC: JER 14:17
DX: R55 Syncope and collapse (principal); M75.51 Bursitis of right shoulder; I50.9 Heart failure, unspecified; I10 Essential (primary) hypertension; E11.9 Type 2 diabetes mellitus without complications; Z79.84 Long term (current) use of oral hypoglycemic drugs
CPT/HCPCS: 36415; 73030-TC-RT; 80053; 85025; 93005; 93010; 99284-25

== ENCOUNTER 2017-11-12 14:45 | Emergency (ER) | payer BC ==
[2017-11-12 15:08] VITALS: BP 166/83; PULSE 63; TEMP 98.2; BMI 25.4
--- NOTE | 2017-11-12 15:08 | PDOC ---
Rapid Medical Evaluation Time Seen by Provider: 11/12/17 15:02 Medical Evaluation: Allergies Allergy/AdvReac Type Severity Reaction Status Date / Time codeine Allergy Verified 10/17/17 14:40 lisinopril Allergy Verified 10/17/17 14:40 Sulfa (Sulfonamide Allergy Verified 10/17/17 14:40 Antibiotics) [Sulfa(Sulfonamide Antibiotics)] 11/12/17 15:03 I have performed a brief in-person evaluation of this patient. The patient presents with a chief complaint of: Dizziness this am. No DUPONT, blurry vision, slurred speech, focal weakness, cp or sob. BP 207/96 at [facility] this afternoon. 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 11/12/17 15:08
[2017-11-12 15:54] LABS: BASO % 0.7 % (0-2.0); EOS % 0.8 % (0-4.5); LYMPH # 1.5; MCH 25.2 pg (25.7-33.7); MCHC 31.8 g/dl (32.0-36.0); MEAN CELL VOLUME 79.4 fl (80-96); MEAN PLT VOLUME 8.4 fl (7.5-11.1); MONO # 0.5 #; NEUT # 2.4 #; NEUT % 54.8 % (42.8-82.8); PLATELET COUNT 269 K/MM3 (134-434); RDW 15.4 % (11.6-15.6); WHITE BLOOD COUNT 4.5 K/mm3 (4.0-10.0)
[2017-11-12 16:08] LABS: URINE APPEARANCE CLEAR; URINE BILIRUBIN NEGATIVE (NEGATIVE); URINE BLOOD NEGATIVE (NEGATIVE); URINE COLOR LTYELLOW; URINE GLUCOSE (UA) NEGATIVE (NEGATIVE); URINE KETONE NEGATIVE (NEGATIVE); URINE NITRITE NEGATIVE (NEGATIVE); URINE PROTEIN NEGATIVE (NEGATIVE); URINE UROBILINOGEN NEGATIVE mg/dL (0.2-1.0)
[2017-11-12 16:18] LABS: URINE LEUK ESTERASE 1+ (NEGATIVE)
[2017-11-12 16:21] LABS: ALBUMIN 3.9 g/dl (3.4-5.0); ANION GAP 8 (8-16); BILIRUBIN,TOTAL 0.3 mg/dL (0.2-1.0); CALCIUM 9.5 mg/dL (8.5-10.1); CO2 31 mmol/L (21-32); CREATININE 0.7 mg/dL (0.55-1.02); GLUCOSE,RANDOM 83 mg/dL (74-106); SGOT/AST 15 U/L (15-37); SGPT/ALT 15 U/L (12-78); TOT PROT 8.1 g/dl (6.4-8.2)
[2017-11-12 16:22] LABS: ALK PHOS 87 U/L (45-117); URINE MUCUS RARE; URINE RBC 1 /hpf (0-3); URINE WBC 7 /hpf (3-5)
[2017-11-12 19:30] LABS: URINE LEUK ESTERASE 1+ (NEGATIVE)
== END 2017-11-12 19:37 | disposition left against medical advice (07) ==
LOC: JER 14:45
DX: Z53.21 Procedure and treatment not carried out due to patient leaving prior to being seen by health care provider (principal)
CPT/HCPCS: 36415; 80053; 81003; 81015; 85025; 99281-25

== ENCOUNTER 2017-12-28 18:09 | Emergency (ER) | payer BC ==
[2017-12-28 18:46] VITALS: BP 146/63; PULSE 66; TEMP 98.4; BMI 26.0
--- NOTE | 2017-12-28 19:45 | PDOC ---
History of Present Illness - General Chief Complaint: Palpitations Stated Complaint: PALPITATIONS Time Seen by Provider: 12/28/17 19:44 - History of Present Illness Initial Comments: 12/28/17 19:46 77 yo F with h/o HTN, DM, CHF and NM who presents with palpitations. Patient reports acute onset of palpitations at 0400 pm while sitting down at [employer] immediately after PO intake of Amlodipine 10 mg PO. Pt. reports feeling flushed , lightheaded, nauseas, cough, and tachycardic with irregular heart beat. Symptoms improved upon arrival to ED ( 1630). Reports similar episode yesterday of symptoms yesterday evening following PO Amldoipine intake. Shes states that she recently saw circuits engineer Dr. Euceda Friday (12/24/2017) and he adjusted medication from 5 mg PO Amlodipine to 10 mg PO Amlodipine. Denies vomiting, F/C , SOB, CP , wheezing, pleuritic chest pain, hemoptysis, Perales, leg swelling, abdominal pain, urinary complaints, diarrhea, constipation, BPR, sensory changes , weakness. Symptoms now resolved. Last echo ( 07/02/17) Unremarkable pulm HTN. Tobacco cessation 10 years ago. Past History - Past Medical History Allergies/Adverse Reactions: Allergies Allergy/AdvReac Type Severity Reaction Status Date / Time codeine Allergy Verified 12/28/17 18:42 lisinopril Allergy Verified 12/28/17 18:42 Sulfa (Sulfonamide Allergy Verified 12/28/17 18:42 Antibiotics) [Sulfa(Sulfonamide Antibiotics)] Home Medications: Ambulatory Orders Aspirin [ASA -] 81 mg PO DAILY 04/17/15 Glipizide Xl [Glucotrol Xl -] 2.5 mg PO DAILY 07/01/17 Simvastatin [Zocor -] 20 mg PO DAILY 07/01/17 Amlodipine Besylate [Norvasc -] 5 mg PO DAILY 10/17/17 Amitriptyline HCl [Elavil -] 10 mg PO HS 12/28/17 Furosemide [Lasix] 40 mg PO HS 12/28/17 Cancer: Yes (BREAST (Lt)) Cardiac Disorders: Yes (angina) COPD: No DVT: No Diabetes: Yes HTN: Yes Hypercholesterolemia: Yes - Immunization History Immunization Up to Date: Yes - Suicide/Smoking/Psychosocial Hx Smoking Status: No Smoking History: Former smoker Have you smoked in the past 12 months: No Number of Cigarettes Smoked Daily: 20 If you are a former smoker, when did you quit?: 20 yrs ago Information on smoking cessation initiated: No Hx Alcohol Use: No Drug/Substance Use Hx: No Substance Use Type: None Hx Substance Use Treatment: No Review of Systems - Review of Systems Comments:: 12/28/17 19:45 GENERAL/CONSTITUTIONAL: No fever or chills. No weakness. HEAD, EYES, EARS, NOSE AND THROAT: No change in vision. No ear pain or discharge. No sore throat.- CARDIOVASCULAR: No chest pain or shortness of breath RESPIRATORY: No cough, wheezing, or hemoptysis. GASTROINTESTINAL: No nausea, vomiting, diarrhea or constipation. GENITOURINARY: No dysuria, frequency, or change in urination. MUSCULOSKELETAL: No joint or muscle swelling or pain. No neck or back pain. SKIN: No rash NEUROLOGIC: No headache, vertigo, loss of consciousness, or change in strength/ sensation. ENDOCRINE: No increased thirst. No abnormal weight change HEMATOLOGIC/LYMPHATIC: No anemia, easy bleeding, or history of blood clots. ALLERGIC/IMMUNOLOGIC: No hives or skin allergy. *Physical Exam - Vital Signs Last Vital Signs Temp Pulse Resp BP Pulse Ox 98.4 F 66 19 146/63 98 12/28/17 18:43 12/28/17 18:43 12/28/17 18:43 12/28/17 18:43 12/28/17 18:43 - Physical Exam Comments: 12/28/17 19:45 GENERAL: Awake, alert, and fully oriented, in no acute distress HEAD: No signs of trauma, normocephalic, atraumatic EYES: PERRLA, EOMI, sclera anicteric, conjunctiva clear ENT: Hearing grossly normal, nares patent, oropharynx clear without exudates. Moist mucosa NECK: Normal ROM, no JVD, or masses LUNGS: No distress, speaks full sentences, clear to auscultation bilaterally HEART: Regular rate and rhythm, normal S1 and S2, no murmurs, rubs or gallops, peripheral pulses normal and equal bilaterally. EXTREMITIES : Normal inspection, Normal range of motion, no edema. No clubbing or cyanosis. SKIN: Warm, Dry, normal turgor, no rashes or lesions noted. ED Treatment Course - LABORATORY CBC & Chemistry Diagram: 12/28/17 20:19 12/28/17 20:19 - ADDITIONAL ORDERS Additional order review: Laboratory Results 12/28/17 12/28/17 12/28/17 20:19 20:19 20:19 PT with INR 11.40 INR 1.01 Sodium 141 Potassium 3.6 Chloride 105 Carbon Dioxide 29 Anion Gap 7 L BUN 14 Creatinine 0.7 Creat Clearance w eGFR > 60 Random Glucose 91 Calcium 8.9 Total Bilirubin 0.3 AST 15 ALT 17 Alkaline Phosphatase 86 Creatine Kinase 87 Troponin I < 0.02 B-Natriuretic Peptide 82.79 Total Protein 7.9 Albumin 4.1 12/28/17 20:19 RBC 4.65 MCV 78.5 L MCHC 32.1 RDW 15.6 MPV 8.3 Neutrophils % 49.4 Lymphocytes % 38.9 Monocytes % 10.1 Eosinophils % 0.8 Basophils % 0.8 - RADIOLOGY Radiology Studies Ordered: Category Date Time Status HEAD CT WITHOUT CONTRAST [CT] Stat CT Scan 12/28/17 20:42 Ordered CXRPORT [CHEST X-RAY PORTABLE*] [RAD] Stat Radiology 12/28/17 19:53 Taken Medical Decision Making - Medical Decision Making 12/28/17 19:52 77 yo F with h/o HTN, DM, CHF and NM who presents with acute onset of palpitations, flushed sensation, lightheaded, nausea, cough, and tachycardia at 0400 pm while sitting down at [facility] immediately after PO intake of Amlodipine 10 mg PO. Pt. Symptoms now resolved following arrival to ED ( 1630) . Reports similar presentation of symptoms yesterday evening following PO Amldoipine intake.Recent medication adjustment from 5 mg PO Amlodipine to 10 mg PO Amlodipine within past 2 days. Denies vomiting, F/C, SOB, CP , wheezing, pleuritic chest pain, hemoptysis, Perales, leg swelling, abdominal pain, urinary complaints, diarrhea, constipation, BPR, sensory changes, weakness. Physical exam unremarkable. Hemodynamically stable. Although, low suspicion will workup pt. for ACS/NM. Will also assess for electrolyte/metabolic disturbance. Low risk of PE. DDx: ACS/NM, PNA, PE, CHF ED course: CBC, CMP, Cardiac Pr, BNP UA EKG, CXR CT HEAD EKG: NSR with LAD, LVH as seen on previous EKG ( 10/17/2017). Absent MEHREEN, or STD. 12/28/17 20:38 CBC: Unremarkable 12/28/17 21:18 Trop: Neg BNP: 82 12/28/17 21:40 CT HEAD: Unremarkable. Patient stable at bedside and advised to f/u with circuits engineer with return precautions. 12/28/17 22:[address] Tracey Herzog, but answering service reports unable to connect to provider. *DC/Admit/Observation/Transfer Diagnosis at time of Disposition: Palpitations Medication adverse effect Qualifiers: Encounter type: initial encounter Qualified Code(s): T88.7XXA - Unspecified adverse effect of drug or medicament, initial encounter - Discharge Dispostion Condition at time of disposition: Stable Admit: No - Referrals Referrals: Tracey Herzog MD [Primary Care Provider] - - Patient Instructions Printed Discharge Instructions: DI for Palpitations Additional Instructions: Please return to the emergency department with any new or worsening symptoms or concerns. Please follow up with your circuits engineer within the next 24-72 hours. - Post Discharge Activity - Attestations Physician Attestion: 12/28/17 20:23 I attest to the documentation provided in this note.
[2017-12-28 20:29] LABS: BASO % 0.8 % (0-2.0); EOS % 0.8 % (0-4.5); HEMATOCRIT 36.5 % (32.4-45.2); HEMOGLOBIN 11.7 GM/dL (10.7-15.3); LYMPH % 38.9 % (8-40); MCH 25.2 pg (25.7-33.7); MCHC 32.1 g/dl (32.0-36.0); MEAN CELL VOLUME 78.5 fl (80-96); MEAN PLT VOLUME 8.3 fl (7.5-11.1); MONO % 10.1 % (3.8-10.2); NEUT % 49.4 % (42.8-82.8); PLATELET COUNT 253 K/MM3 (134-434); RBC 4.65 M/mm3 (3.60-5.2); RDW 15.6 % (11.6-15.6); WHITE BLOOD COUNT 5.5 K/mm3 (4.0-10.0)
[2017-12-28 20:49] LABS: INR 1.01 (0.82-1.09); PROTHROMBIN TIME (PATIENT) 11.4 SEC (9.98-11.88)
--- NOTE | 2017-12-28 20:52 | PDOC ---
Attending Attestation - Resident Resident Name: Ross Allredson - ED Attending Attestation I have performed the following: I have examined & evaluated the patient, The case was reviewed & discussed with the resident, I agree w/resident's findings & plan - HPI HPI: 12/28/17 20:51 Pt comes with nausea and dizziness that she experiences every time that she takes her double dose of amlodipine. Pt experienced it again today and decoded to come in and get checked out. Pt is feeling better at this time, as she has been stuck waiting a couple of hours here. Pt will however be worked up and we will check a CT head. - Physicial Exam PE: 12/28/17 20:52 Agree with resident exam - Medical Decision Making 12/28/17 20:52 CXR; clear ling pelletier, normal mediatrinum and slight boot shaped heart. 12/28/17 22:32 THIS IS A PRELIMINARY REPORT FROM [facility] DATE OF SERVICE: 2017-12-28 20:57:55 IMAGES: 162 EXAM: CT HEAD WITHOUT CONTRAST REASON FOR EXAM: Lightheadedness COMPARISON: None FINDINGS: Generalized mild volume loss and minimal low attenuation chronic white matter changes No intracranial hemorrhage midline shift, acute large vessel infarction Disla white matter demarcation intact. Ventricles, sulci and basal cisterns are within normal for age. Visualized paranasal sinuses are clear. Orbital structures are intact. Calvarium intact. IMPRESSION: No acute intracranial findings. THIS DOCUMENT HAS BEEN ELECTRONICALLY SIGNED 12/29/17 06:35 Pt is feeling better now that her exam in the ER and CT head are normal. She will take a cab home and she will follow with her PMD Manjula Harley
[2017-12-28 20:54] LABS: ALBUMIN 4.1 g/dl (3.4-5.0); ALK PHOS 86 U/L (45-117); ANION GAP 7 (8-16); BILIRUBIN,TOTAL 0.3 mg/dL (0.2-1.0); BLOOD UREA NITROGEN 14 mg/dL (7-18); CALCIUM 8.9 mg/dL (8.5-10.1); CHLORIDE 105 mmol/L (98-107); CO2 29 mmol/L (21-32); CREATININE 0.7 mg/dL (0.55-1.02); GLUCOSE,RANDOM 91 mg/dL (74-106); POTASSIUM 3.6 mmol/L (3.5-5.1); SGOT/AST 15 U/L (15-37); SGPT/ALT 17 U/L (12-78); SODIUM 141 mmol/L (136-145); TOT PROT 7.9 g/dl (6.4-8.2)
[2017-12-28 20:57] LABS: N-TERMINAL BNP 82.79 pg/ml (5-450)
--- NOTE | 2017-12-29 23:24 | EKG ---
Test Reason : Blood Pressure : / mmHG Vent. Rate : 069 BPM Atrial Rate : 069 BPM P-R Int : 198 ms QRS Dur : 092 ms QT Int : 398 ms P-R-T Axes : 067 -31 040 degrees QTc Int : 426 ms NORMAL SINUS RHYTHM LEFT AXIS DEVIATION LEFT VENTRICULAR HYPERTROPHY WITH REPOLARIZATION ABNORMALITY CANNOT RULE OUT SEPTAL INFARCT , AGE UNDETERMINED ABNORMAL ECG WHEN COMPARED WITH ECG OF 17-OCT-2017 17:11, NO SIGNIFICANT CHANGE WAS FOUND Confirmed by GREGORIO THAYER MD ([id number]) on 12/29/2017 11:23:37 PM Referred By: Confirmed By:GREGORIO THAYER MD
== END 2017-12-28 23:19 | disposition home or self-care (01) ==
LOC: JER 18:09
DX: R00.2 Palpitations (principal); T46.1X5A Adverse effect of calcium-channel blockers, initial encounter; Y92.22 Religious institution as the place of occurrence of the external cause; E11.9 Type 2 diabetes mellitus without complications; Z79.84 Long term (current) use of oral hypoglycemic drugs; I25.2 Old myocardial infarction
CPT/HCPCS: 36415; 70450-TC; 71045-TC; 80053; 82550; 83880; 84484; 85025; 85610; 93005; 93010; 99284-25

== ENCOUNTER → 2018-04-23 | Day surgery (SDC) | payer OTHER | END | disposition home or self-care (01) | LOC: FMAMMOTONE 09:27 | PROVIDERS: ATTEND Internal Medicine | PROC: 0HBT3ZX Excision of Right Breast, Percutaneous Approach, Diagnostic (ICD-10-PCS; principal; 2018-04-23) | DX: N60.31 Fibrosclerosis of right breast (principal); N64.89 Other specified disorders of breast; R92.1 Mammographic calcification found on diagnostic imaging of breast | CPT/HCPCS: 19081; 88305-TC ==

== ENCOUNTER 2018-09-14 15:08 | Emergency (ER) | payer OTHER ==
[2018-09-14 15:16] VITALS: BMI 25.4
--- NOTE | 2018-09-14 15:21 | PDOC ---
Rapid Medical Evaluation Chief Complaint: Headache Time Seen by Provider: 09/14/18 15:14 Medical Evaluation: Allergies Allergy/AdvReac Type Severity Reaction Status Date / Time codeine Allergy Verified 12/28/17 18:42 lisinopril Allergy Verified 12/28/17 18:42 Sulfa (Sulfonamide Allergy Verified 12/28/17 18:42 Antibiotics) [Sulfa(Sulfonamide Antibiotics)] Vital Signs Temp Pulse Resp BP Pulse Ox 97.6 F 69 20 160/60 100 09/14/18 15:11 09/14/18 15:11 09/14/18 15:11 09/14/18 15:11 09/14/18 15:11 09/14/18 15:19 I have performed a brief in-person evaluation of this patient. The patient presents with a chief complaint of: hot flashes, shooting pain from neck to head since 40mins ago. Denies dizziness, DUPONT, blurry vision Pertinent physical exam findings: A&O X 3 I have ordered the following: CBC, CMP, LH/FSH The patient will proceed to the ED for further evaluation. Discharge Disposition - Diagnosis Hot flashes - Referrals - Patient Instructions - Post Discharge Activity
[2018-09-14 15:46] LABS: BASO % 2.5 % (0-2.0); EOS % 1.2 % (0-4.5); HEMATOCRIT 35.4 % (32.4-45.2); MCH 24.8 pg (25.7-33.7); MCHC 31.2 g/dl (32.0-36.0); MEAN CELL VOLUME 79.7 fl (80-96); MEAN PLT VOLUME 7.9 fl (7.5-11.1); MONO % 11.2 % (3.8-10.2); NEUT % 59.1 % (42.8-82.8); PLATELET COUNT 276 K/MM3 (134-434); RBC 4.44 M/mm3 (3.60-5.2); RDW 16.1 % (11.6-15.6); WHITE BLOOD COUNT 5.2 K/mm3 (4.0-10.0)
[2018-09-14 16:10] LABS: ALBUMIN 3.6 g/dl (3.4-5.0); ALK PHOS 85 U/L (45-117); ANION GAP 6 MMOL/L (8-16); BILIRUBIN,TOTAL 0.2 mg/dL (0.2-1); BLOOD UREA NITROGEN 19 mg/dL (7-18); CALCIUM 8.6 mg/dL (8.5-10.1); CHLORIDE 108 mmol/L (98-107); CO2 29 mmol/L (21-32); CREATININE 0.9 mg/dL (0.55-1.3); GLUCOSE,RANDOM 109 mg/dL (74-106); POTASSIUM 3.3 mmol/L (3.5-5.1); SGOT/AST 19 U/L (15-37); SGPT/ALT 15 U/L (13-61); SODIUM 143 mmol/L (136-145); TOT PROT 7.6 g/dl (6.4-8.2)
--- NOTE | 2018-09-14 16:57 | PDOC ---
History of Present Illness - General Chief Complaint: Headache Stated Complaint: PAIN Time Seen by Provider: 09/14/18 15:14 - History of Present Illness Initial Comments: 09/14/18 16:49 77F w/ pmhx of HTN, HLD, NIDDM, SD, L breast cx s/p mastectomy presents with head pain that started at 3pm today. She states the head pain is 8/10 and has never had pain like this before. She reports the pain starts in the L temporal region and radiates to the top of her head and to the back of her L ear. Pain is a sharp and intermittent. She says she has not taken anything for it. Nothing makes it better and worse. Her pain has no associated symptoms. Denies vision changes, dizziness, falling, trauma to the head, nausea/vomiting, chest pain, sob, abd pain, urinary/bowel symptoms, blood in urine/stool. PCP: Dr. Manjula Harley PMHx: HTN, HLD, NIDDM, SD, L breast cx in remission PSHx: L breast mastectomy FHx: Mom- Stroke, Sister- Breast cx Social: Former smoker, quit years ago, used to smoke 1 pack/week; Denies alcohol , rec drug use; Denies recent travel Past History - Past Medical History Allergies/Adverse Reactions: Allergies Allergy/AdvReac Type Severity Reaction Status Date / Time codeine Allergy Verified 12/28/17 18:42 lisinopril Allergy Verified 12/28/17 18:42 Sulfa (Sulfonamide Allergy Verified 12/28/17 18:42 Antibiotics) [Sulfa(Sulfonamide Antibiotics)] Home Medications: Ambulatory Orders Aspirin [ASA -] 81 mg PO DAILY 04/17/15 Glipizide Xl [Glucotrol Xl -] 2.5 mg PO DAILY 07/01/17 Simvastatin [Zocor -] 20 mg PO DAILY 07/01/17 Amlodipine Besylate [Norvasc -] 10 mg PO DAILY 10/17/17 Amitriptyline HCl [Elavil -] 10 mg PO HS 12/28/17 Furosemide [Lasix] 40 mg PO HS 12/28/17 Cancer: Yes (BREAST (Lt)) Cardiac Disorders: Yes (angina) COPD: No DVT: No Diabetes: Yes HTN: Yes Hypercholesterolemia: Yes - Immunization History Immunization Up to Date: Yes - Suicide/Smoking/Psychosocial Hx Smoking Status: No Smoking History: Never smoked Have you smoked in the past 12 months: No Number of Cigarettes Smoked Daily: 20 If you are a former smoker, when did you quit?: 20 yrs ago Information on smoking cessation initiated: No Hx Alcohol Use: No Drug/Substance Use Hx: No Substance Use Type: None Hx Substance Use Treatment: No Review of Systems - Review of Systems Able to Perform ROS?: Yes Is the patient limited Tamazight proficient: No Constitutional: No: Chills, Fever HEENTM: No: Blurred Vision, Recent change in vision Respiratory: No: Cough, Shortness of Breath Cardiac (ROS): No: Chest Pain, Lightheadedness ABD/GI: No: Abdominal Distended, Constipated, Diarrhea, Nausea, Vomiting Musculoskeletal: Yes: Other (R leg edema). No: Muscle Weakness Neurological: Yes: Headache. No: Numbness, Paresthesia, Tingling, Weakness, Dizziness Endocrine: Yes: Other (Hot flashes) *Physical Exam - Vital Signs Last Vital Signs Temp Pulse Resp BP Pulse Ox 97.6 F 69 20 160/60 100 09/14/18 15:11 09/14/18 15:11 09/14/18 15:11 09/14/18 15:11 09/14/18 15:11 - Physical Exam Comments: 09/14/18 17:23 GEN: NAD. AAOx3. HEENT: AT/NC. EOMI. RUBA. Moist mucus membranes. Facial symmetry noted. Neck: Supple, no LAD/JVD. Lungs: CTA B/L. No wheezes noted. Chest: RRR. Normal S1, S2. S3 noted. No murmurs noted. Abd: Soft, NT/ND. Normactive BS in all 4 Q's. Extremities: L leg swelling. No pitting edema. 5/5 muscle strength u/l b/l extremities. Neuro: CN II-XII intact. Knwzhw-ml-wwjm, lymg-jt-dbtx neg. B/l sensation intact. ED Treatment Course - LABORATORY CBC & Chemistry Diagram: 09/14/18 15:38 09/14/18 15:38 - ADDITIONAL ORDERS Additional order review: Laboratory Results 09/14/18 15:38 Sodium 143 Potassium 3.3 L Chloride 108 H Carbon Dioxide 29 Anion Gap 6 L BUN 19 H Creatinine 0.9 Creat Clearance w eGFR > 60 Random Glucose 109 H Calcium 8.6 Total Bilirubin 0.2 AST 19 ALT 15 Alkaline Phosphatase 85 Total Protein 7.6 Albumin 3.6 09/14/18 15:38 RBC 4.44 MCV 79.7 L MCHC 31.2 L RDW 16.1 H MPV 7.9 D Neutrophils % 59.1 Lymphocytes % 26.0 D Monocytes % 11.2 H Eosinophils % 1.2 Basophils % 2.5 H D Medical Decision Making - Medical Decision Making 09/14/18 17:22 Headache -Tylenol given -Given pt's significant family hx of stroke and patient's age, will obtain Head CT to r/o acute IC pathology 09/14/18 20:14 Pt feeling much better -Head CT neg for acute IC pathology, unchanged from previous head CT done on 09/14/18 20:25 -K+ 3.3, will give K-Dur 40 -will repeat BP 09/14/18 20:41 -BP stable. 154/63. -Will DC home. Pt given recommendation to follow up with PCP within 1 week. *DC/Admit/Observation/Transfer Diagnosis at time of Disposition: Hot flashes, Head pain - Discharge Dispostion Disposition: HOME Condition at time of disposition: Improved Decision to Admit order: No - Referrals Referrals: Manjula Harley MD [Primary Care Provider] - - Patient Instructions Additional Instructions: You were seen in the ED for complaints of head pain and hot flashes. In the ED, a head CT was done that showed no evidence of an acute condition. You were given Tylenol and your symptoms improved. You are being discharged home. Please follow up with your primary care physician, Dr. Harley, within 1 week. Please take Tylenol 650 mg every 4 hours as needed for pain. If you experience worsening headache, vision changes, chest pain, shortness of breath, problem with balance and coordination or difficulty walking, please proceed to your nearest emergency department immediately. - Post Discharge Activity
[2018-09-14] MEDS ORDERED: ACETAMINOPHEN 325 MG TABLET (FP) PO ONE (17:16)
[2018-09-14] MEDS ORDERED: ACETAMINOPHEN 325 MG TABLET (FP) ONE (17:47)
--- NOTE | 2018-09-14 17:48 | PDOC ---
Attending Attestation - HPI HPI: 09/14/18 18:12 The patient is a 77 year old female, with a significant past medical history of htn, hld, NIDDM (on glipizide, CHF (on lasix), CAD, CT, left breast CA s/p left mastectomy, who presents to the emergency department for intermittent 8/10 headache since sudden onset while resting at home at 3pm today. She states the headache is located to the left temporal region with radiation superiorly and posteriorly. The patient denies chest pain, shortness of breath, and dizziness. The patient denies fever, chills, nausea, vomit, diarrhea and constipation. The patient denies dysuria, frequency, urgency and hematuria. Past surgical history: left breast mastectomy Social history: Denies toxic habits PCP - Dr. Manjula Menchaca - Physicial Exam PE: 09/14/18 18:12 GENERAL: Well-appearing, well-nourished. No apparent distress. HEENT: Normocephalic, atraumatic. PERRL, EOM intact. CARDIOVASCULAR: Normal S1, S2. Regular rate and rhythm. PULMONARY: Clear to auscultation bilaterally. ABDOMEN: Soft, non-distended, non-tender. EXTREMITIES: Normal ROM in all four extremities. No gross deformities. SKIN: Warm, dry. No rash NEUROLOGICAL: No focal neurological deficits. - Medical Decision Making 09/14/18 18:13 Documentation prepared by Claudia Duke, acting as certified medical aide for Hazel Strauss MD <Claudia Duke - Last Filed: 09/14/18 18:12> - Resident Resident Name: Rena Burleson - ED Attending Attestation I have performed the following: I have examined & evaluated the patient, The case was reviewed & discussed with the resident, I agree w/resident's findings & plan, Exceptions are as noted - Medical Decision Making 09/14/18 20:24 Blood pressure was 160/90 upon arrival no focal neuro deficits CAT scan of the head did not show any acute intracranial pathology. Patient has no gross focal neural deficits and described it as a pain, not is a headache. She said it was like lightning came and went. She never had any vomiting, no visual changes 09/15/18 00:26 <Hazel Strauss - Last Filed: 09/15/18 00:27>
[2018-09-14] MEDS ORDERED: POTASSIUM CHLORIDE TABS 20 MEQ TABLET.ER (FP) PO ONE ×2 (20:24→20:51)
[2018-09-14 20:58] VITALS: BP 150/77; PULSE 71; TEMP 97.9
[2018-09-16 06:06] LABS: FOLLICLE STIMULATING HORMONE 92.8 mIU/mL (.); LUTEINIZING HORMONE 51.3 mIU/mL (.)
== END 2018-09-14 20:55 | disposition home or self-care (01) ==
LOC: JER 15:08
DX: R51 Headache (principal); N95.1 Menopausal and female climacteric states; E11.9 Type 2 diabetes mellitus without complications; Z79.84 Long term (current) use of oral hypoglycemic drugs; E78.00 Pure hypercholesterolemia, unspecified; I25.119 Atherosclerotic heart disease of native coronary artery with unspecified angina pectoris; I11.0 Hypertensive heart disease with heart failure; I25.2 Old myocardial infarction; Z85.3 Personal history of malignant neoplasm of breast; Z90.12 Acquired absence of left breast and nipple; E87.6 Hypokalemia
CPT/HCPCS: 36415; 70450-TC; 80053; 83001; 83002; 85025; 99282-25

== ENCOUNTER 2018-11-12 06:20 | Emergency (ER) | payer OTHER ==
--- NOTE | 2018-11-12 06:29 | PDOC ---
History of Present Illness - General Stated Complaint: ABD PAIN Time Seen by Provider: 11/12/18 06:23 History Source: Patient, EMS Exam Limitations: No Limitations - History of Present Illness Initial Comments: 11/12/18 06:24 78 YOF with h/o NIDDM, CHF (on Lasix), CAD with MA, hysterectomy, and left breast CA s/p left mastectomy, who was BIBEMS with about 6 hours upper abdominal pain and distention. She denies f/c/n/v/d/c, chest pain, SOB, dysuria , vaginal bleeding/discharge, black/bloody/white stool, or other symptoms. Has not taken medication for the symptoms. She has had similar symptoms once in the past and she states it was her CHF. Field EKG unremarkable on my read, hypertensive on EMS vitals, they report other vitals wnl. Past History - Past Medical History Allergies/Adverse Reactions: Allergies Allergy/AdvReac Type Severity Reaction Status Date / Time codeine Allergy Verified 11/12/18 06:37 lisinopril Allergy Verified 11/12/18 06:37 Sulfa (Sulfonamide Allergy Verified 11/12/18 06:37 Antibiotics) [Sulfa(Sulfonamide Antibiotics)] Home Medications: Ambulatory Orders Aspirin [ASA -] 81 mg PO DAILY 04/17/15 Glipizide Xl [Glucotrol Xl -] 2.5 mg PO DAILY 07/01/17 Simvastatin [Zocor -] 20 mg PO DAILY 07/01/17 Amlodipine Besylate [Norvasc -] 10 mg PO DAILY 10/17/17 Amitriptyline HCl [Elavil -] 10 mg PO HS 12/28/17 Furosemide [Lasix] 40 mg PO HS 12/28/17 Cancer: Yes (BREAST (Lt)) Cardiac Disorders: Yes (angina) COPD: No DVT: No Diabetes: Yes HTN: Yes Hypercholesterolemia: Yes - Immunization History Immunization Up to Date: Yes - Suicide/Smoking/Psychosocial Hx Smoking Status: No Smoking History: Never smoked Have you smoked in the past 12 months: No Number of Cigarettes Smoked Daily: 20 If you are a former smoker, when did you quit?: 20 yrs ago Hx Alcohol Use: No Drug/Substance Use Hx: No Substance Use Type: None Hx Substance Use Treatment: No Review of Systems - Review of Systems Able to Perform ROS?: Yes Comments:: 11/12/18 06:38 GEN: no fever, chills, malaise, generalized weakness, or weight change HEENT: no ear pain, sore throat, vision change, or eye pain CV: no chest pain, palpitations, lightheadedness, syncope, or edema RESP: no cough, wheezing, or SOB GI: abdominal pain, abdominal distention, no nausea, vomiting, diarrhea, constipation, or white/black/bloody stool : no dysuria, hematuria, incontinence, retention, bleeding, or discharge MSK: no neck/back pain, muscle weakness/pain, or joint swelling/pain NEURO: no headache, seizure, vertigo, numbness, tingling, or focal weakness PSYCH: no substance use, no behavior change SKIN: no jaundice, no rash ROS otherwise negative except as noted in HPI *Physical Exam - Vital Signs 11/12/18 06:40 GENERAL: pleasant, elderly, well-appearing, A/Ox4, no distress, answers questions appropriately HEENT: PERRLA, EOMI, moist mucous membranes NECK/BACK: no midline ttp, no spinal stepoff or deformity, no hematoma, full ROM , neck supple CARDIOVASCULAR: regular rate/rhythm, normal S1S2, no MGR, strong peripheral pulses, capillary refill <2 seconds, extremities wwp LUNGS/RESPIRATORY: no respiratory distress, CTAB GI/ABDOMEN: protuberant, symmetric [id number]-[id number], normoactive BS, soft, epigastric and RUQ ttp which is mild, hepatomegaly, no peritoneal signs, no midline pulsatile masses : no CVA tenderness EXTREMITIES: no muscle atrophy, no acute deformity, BLE 1+ pitting edema SKIN: warm and dry, no pallor, no jaundice, no rash, no bruising, no skin breakdown, no cuts, no lesions NEUROLOGICAL: GCS 15, CN II-XII grossly intact, 5/5 strength proximally and distally, no facial droop Medical Decision Making - Medical Decision Making 11/12/18 06:45 Adult female Pt p/w RUQ abdominal pain. Initial Vital Signs Temp Pulse Resp BP Pulse Ox 98.1 F 70 18 195/89 H 98 11/12/18 06:20 11/12/18 06:20 11/12/18 06:20 11/12/18 06:20 11/12/18 06:20 Exam: As noted in Physical Exam section. DDX IBNLT: SBO, bowel perforation, ACS, AAA/AD, gastritis, PUD, colitis, diverticulitis wwo abscess or perforation, pancreatitis, cholecystitis ( calculous vs. acalculous), choledocholithiasis, appendicitis, UTI/pyelonephritis /stone, mesenteric/bowel ischemia, constipation, gas, musculoskeletal, etc. W/U ordered: Labs as noted below, EKG, CXR, CT A/P with PO contrast (and IV is Cr is <1.3) TX ordered: None at this time Provider Orders Category Date Time Status TYPE AND SCREEN Stat Blood Bank 11/12/18 06:29 Ordered ELECTROCARDIOGRAM [CARD] Stat Cardiology 11/12/18 06:29 Ordered EKG needed NOW Care 11/12/18 06:34 Ordered IV Insert NOW Care 11/12/18 06:29 Ordered CARDIAC PROFILE ([facility]) Stat Lab 11/12/18 06:29 Ordered CBC WITH DIFFERENTIAL Stat Lab 11/12/18 06:29 Ordered COMP METABOLIC PANEL Stat Lab 11/12/18 06:29 Ordered LACTIC ACID Stat Lab 11/12/18 06:29 Ordered LIPASE Stat Lab 11/12/18 06:29 Ordered N-TERMINAL BNP Stat Lab 11/12/18 06:29 Ordered PT/INR (PROTHROMBIN TIME) Stat Lab 11/12/18 06:29 Ordered URINALYSIS Stat Lab 11/12/18 06:29 Ordered URINE CULTURE Stat Micro 11/12/18 06:29 Ordered Saline Lock, Insert ONCE Phy Order 11/12/18 06:30 Ordered CHEST X-RAY PORTABLE* [RAD] Stat Radiology 11/12/18 06:29 Ordered EKG: Reviewed; results as noted in ECG Review section. CXR: Pending CT A/P: Pending 11/12/18 07:00 Patient's care is endorsed to oncoming resident at the end of my shift pending labs, CXR, CT. *DC/Admit/Observation/Transfer Diagnosis at time of Disposition: Abdominal pain Qualifiers: Abdominal location: unspecified location Qualified Code(s): R10.9 - Unspecified abdominal pain - Discharge Dispostion Condition at time of disposition: Fair - Referrals Referrals: Manjula Harley MD [Primary Care Provider] - - Patient Instructions - Post Discharge Activity
[2018-11-12 06:37] VITALS: BMI 26.0
--- NOTE | 2018-11-12 06:53 | PDOC ---
Attending Attestation - Resident Resident Name: Emily Steele - ED Attending Attestation I have performed the following: I have examined & evaluated the patient, The case was reviewed & discussed with the resident, I agree w/resident's findings & plan, Exceptions are as noted - HPI HPI: 11/12/18 07:11 78F pmh DM, HTN, CAD s/p NE, CHF, Breast CA s/p mastectomy here with 6h of sudden onset of upper abdominal px and sensation of fullness. No nausea/ vomiting, no a/w eating, no cp, sob. States that it feels similar to when she was initially diagnosed with CHF. - Physicial Exam PE: 11/12/18 07:13 Agree with exam as documented by resident +ttp across upper abdomen, no guarding, no rebound LCTAB, normal wob - Medical Decision Making 11/12/18 07:14 Differential remains broad, including acs, chf, obstruction, casandra, pancreatitis , gastritis f/u labs, ekg, will likely need imaging dispo per clinical course
[2018-11-12 07:01] LABS: BASO % 1.1 % (0-2.0); EOS % 0.8 % (0-4.5); HEMATOCRIT 35.8 % (32.4-45.2); HEMOGLOBIN 12.1 GM/dL (10.7-15.3); LYMPH % 19.4 % (8-40); MCH 26.5 pg (25.7-33.7); MEAN CELL VOLUME 77.9 fl (80-96); MEAN PLT VOLUME 8.3 fl (7.5-11.1); MONO % 9.4 % (3.8-10.2); NEUT % 69.3 % (42.8-82.8); PLATELET COUNT 287 K/MM3 (134-434); RBC 4.59 M/mm3 (3.60-5.2); RDW 15.5 % (11.6-15.6); WHITE BLOOD COUNT 6.7 K/mm3 (4.0-10.0)
--- NOTE | 2018-11-12 07:12 | PDOC ---
*Physical Exam - Vital Signs Last Vital Signs Temp Pulse Resp BP Pulse Ox 98.1 F 70 18 195/89 H 98 11/12/18 06:20 11/12/18 06:20 11/12/18 06:20 11/12/18 06:20 11/12/18 06:20 - Physical Exam Comments: 11/12/18 07:23 GENERAL: Awake, alert, and fully oriented, in no acute distress HEAD: No signs of trauma, normocephalic, atraumatic EYES: EOMI, sclera anicteric, conjunctiva clear ENT: oropharynx clear without exudates. Moist mucosa NECK: Normal ROM, supple LUNGS: No distress, speaks full sentences, clear to auscultation bilaterally HEART: Regular rate and rhythm, normal S1 and S2, no murmurs, rubs or gallops, peripheral pulses normal and equal bilaterally. ABDOMEN: Soft, + RUQ tenderness to palpation, slight tenderness to LUQ and LLQ, normoactive bowel sounds. No guarding, no rebound. No masses, No CVA tenderness EXTREMITIES : Normal inspection, Normal range of motion, no edema. No clubbing or cyanosis. NEUROLOGICAL: Cranial nerves II through XII grossly intact. Normal speech, normal gait, no focal sensorimotor deficits SKIN: Warm, Dry, normal turgor, no rashes or lesions noted ED Treatment Course - LABORATORY CBC & Chemistry Diagram: 11/12/18 06:46 11/12/18 06:46 - ADDITIONAL ORDERS Additional order review: 11/12/18 06:46 RBC 4.59 MCV 77.9 L MCHC 34.0 RDW 15.5 MPV 8.3 Neutrophils % 69.3 Lymphocytes % 19.4 D Monocytes % 9.4 Eosinophils % 0.8 Basophils % 1.1 Medical Decision Making - Medical Decision Making 11/12/18 07:09 Patient signed out by resident Dr. Steele In short patient with a history of CHF, CAD, HTN, DM who presents w/ diffuse upper abd pain RUQ > LUQ that onset just prior to arrival. Past surgical history includes hysterectomy. ED Course: Pending labs and imaging. 11/12/18 07:25 wbc: 6.7 Pt signed out to resident Dr. Kidd *DC/Admit/Observation/Transfer Diagnosis at time of Disposition: Abdominal pain Qualifiers: Abdominal location: unspecified location Qualified Code(s): R10.9 - Unspecified abdominal pain - Discharge Dispostion Disposition: HOME Condition at time of disposition: Fair - Prescriptions Prescriptions: Ondansetron [Zofran Odt -] 4 mg SL TID #21 od.tablet - Referrals Referrals: Manjula Harley MD [Primary Care Provider] - - Patient Instructions Printed Discharge Instructions: DI for Abdominal Pain-Adult Additional Instructions: Take Zofran as prescribed. For today until tomorrow morning fluids only water, soup, Gatorade if no vomiting by tomorrow morning okay to proceed to a bland diet. Follow-up with your doctor in 2-3 days. Return to emergency department for any persistent vomiting returning abdominal pain or for any concerns. - Post Discharge Activity
[2018-11-12 07:13] LABS: URINE APPEARANCE CLEAR; URINE BILIRUBIN NEGATIVE (<2.0 mg/dL); URINE COLOR COLORLESS; URINE GLUCOSE (UA) NEGATIVE (NEGATIVE); URINE KETONE NEGATIVE (NEGATIVE); URINE LEUK ESTERASE NEGATIVE (NEGATIVE); URINE NITRITE NEGATIVE (NEGATIVE); URINE PROTEIN NEGATIVE (NEGATIVE); URINE UROBILINOGEN NEGATIVE mg/dL (0.2-1.0)
[2018-11-12 07:16] LABS: INR 0.99 (0.83-1.09); PROTHROMBIN TIME (PATIENT) 11.7 SEC (9.7-13.0)
[2018-11-12 07:28] LABS: ALBUMIN 3.7 g/dl (3.4-5.0); ALK PHOS 110 U/L (45-117); ANION GAP 8 MMOL/L (8-16); BILIRUBIN,TOTAL 0.5 mg/dL (0.2-1); BLOOD UREA NITROGEN 16 mg/dL (7-18); CALCIUM 9.4 mg/dL (8.5-10.1); CHLORIDE 100 mmol/L (98-107); CO2 30 mmol/L (21-32); CREATININE 0.7 mg/dL (0.55-1.3); GLUCOSE,RANDOM 112 mg/dL (74-106); LIPASE 218 U/L (73-393); N-TERMINAL BNP 89.7 pg/ml (5-450); SGOT/AST 153 U/L (15-37); SGPT/ALT 66 U/L (13-61); SODIUM 138 mmol/L (136-145)
--- NOTE | 2018-11-12 07:34 | PDOC ---
*Physical Exam - Vital Signs Last Vital Signs Temp Pulse Resp BP Pulse Ox 98.1 F 65 16 175/85 H 96 11/12/18 06:20 11/12/18 07:45 11/12/18 07:45 11/12/18 07:45 11/12/18 07:45 <Doni Mendoza - Last Filed: 11/12/18 12:57> - Vital Signs Last Vital Signs Temp Pulse Resp BP Pulse Ox 98.1 F 70 18 195/89 H 98 11/12/18 06:20 11/12/18 06:20 11/12/18 06:20 11/12/18 06:20 11/12/18 06:20 - Physical Exam General Appearance: Yes: Nourished, Apparent Distress, Moderate Distress HEENT: positive: Normal Voice, Symmetrical. negative: Pharynx Normal (Dry MM), Pharyngeal Erythema, Tonsillar Exudate, Tonsillar Erythema Neck: positive: Supple. negative: Tender Respiratory/Chest: positive: Lungs Clear, Normal Breath Sounds. negative: Respiratory Distress, Accessory Muscle Use, Crackles, Wheezing Cardiovascular: positive: Regular Rhythm, Regular Rate, S1, S2, Edema. negative : JVD, Murmur Vascular Pulses: Dorsalis-Pedis (R): 2+ (radial), Doralis-Pedis (L): 2+ (radial ) Gastrointestinal/Abdominal: positive: Normal Bowel Sounds, Tender (Hilliard's Sign Positive), Guarding, Tenderness (RUQ>Epigastric>LUQ). negative: Pulsatile Mass, Mass Musculoskeletal: positive: Normal Inspection. negative: CVA Tenderness Extremity: positive: Pedal Edema. negative: Tender, Swelling, Calf Tenderness, Erythema, Inflammation Integumentary: positive: Normal Color, Dry, Warm Neurologic: positive: Fully Oriented, Alert, Normal Mood/Affect, Respond to painful stimul, Responsive <Samuel Kidd - Last Filed: 11/12/18 13:01> ED Treatment Course - LABORATORY CBC & Chemistry Diagram: 11/12/18 06:46 11/12/18 06:46 - ADDITIONAL ORDERS Additional order review: Laboratory Results 11/12/18 11/12/18 11/12/18 07:04 06:46 06:46 PT with INR INR Sodium 138 Potassium 4.0 Chloride 100 Carbon Dioxide 30 Anion Gap 8 BUN 16 Creatinine 0.7 Creat Clearance w eGFR > 60 Random Glucose 112 H Lactic Acid 1.1 Calcium 9.4 Total Bilirubin 0.5 AST 153 H ALT 66 H Alkaline Phosphatase 110 Creatine Kinase 174 Creatine Kinase Index 1.0 CK-MB (CK-2) 1.9 Troponin I < 0.02 B-Natriuretic Peptide 89.7 Total Protein 8.0 Albumin 3.7 Lipase 218 Urine Color Urine Appearance Urine pH Ur Specific [place] Urine Protein Urine Glucose (UA) Urine Ketones Urine Blood Urine Nitrite Urine Bilirubin Urine Urobilinogen Ur Leukocyte Esterase Blood Type O POSITIVE Antibody Screen Negative 11/12/18 11/12/18 06:46 06:46 PT with INR 11.70 INR 0.99 Sodium Potassium Chloride Carbon Dioxide Anion Gap BUN Creatinine Creat Clearance w eGFR Random Glucose Lactic Acid Calcium Total Bilirubin AST ALT Alkaline Phosphatase Creatine Kinase Creatine Kinase Index CK-MB (CK-2) Troponin I B-Natriuretic Peptide Total Protein Albumin Lipase Urine Color Colorless Urine Appearance Clear Urine pH 8.0 Ur Specific [place] 1.008 L Urine Protein Negative Urine Glucose (UA) Negative Urine Ketones Negative Urine Blood Negative Urine Nitrite Negative Urine Bilirubin Negative Urine Urobilinogen Negative Ur Leukocyte Esterase Negative Blood Type Antibody Screen 11/12/18 06:46 RBC 4.59 MCV 77.9 L MCHC 34.0 RDW 15.5 MPV 8.3 Neutrophils % 69.3 Lymphocytes % 19.4 D Monocytes % 9.4 Eosinophils % 0.8 Basophils % 1.1 <Doni Mendoza - Last Filed: 11/12/18 12:57> - LABORATORY CBC & Chemistry Diagram: 11/12/18 06:46 11/12/18 06:46 - ADDITIONAL ORDERS Additional order review: Laboratory Results 11/12/18 11/12/18 11/12/18 07:04 06:46 06:46 Sodium 138 Potassium 4.0 Chloride 100 Carbon Dioxide 30 Anion Gap 8 BUN 16 Creatinine 0.7 Creat Clearance w eGFR > 60 Random Glucose 112 H Lactic Acid 1.1 Calcium 9.4 Total Bilirubin 0.5 AST 153 H ALT 66 H Alkaline Phosphatase 110 Creatine Kinase 174 Troponin I < 0.02 B-Natriuretic Peptide 89.7 Total Protein 8.0 Albumin 3.7 Lipase 218 Urine Color Colorless Urine Appearance Clear Urine pH 8.0 Ur Specific [place] 1.008 L Urine Protein Negative Urine Glucose (UA) Negative Urine Ketones Negative Urine Blood Negative Urine Nitrite Negative Urine Bilirubin Negative Urine Urobilinogen Negative Ur Leukocyte Esterase Negative 11/12/18 06:46 RBC 4.59 MCV 77.9 L MCHC 34.0 RDW 15.5 MPV 8.3 Neutrophils % 69.3 Lymphocytes % 19.4 D Monocytes % 9.4 Eosinophils % 0.8 Basophils % 1.1 <Samuel Kidd - Last Filed: 11/12/18 13:01> Medical Decision Making - Medical Decision Making 11/12/18 07:34 11/12/18 07:09 Patient signed out by resident Dr. Bradshaw In short patient with a history of CHF, CAD, HTN, DM who presents w/ diffuse upper abd pain RUQ > LUQ that onset just prior to arrival. Past surgical history includes hysterectomy. ED Course: Pending labs and imaging. 11/12/18 07:25 wbc: 6.7 11/12/18 08:40 Pt. is now complaining of nausea and vomited x 1. 11/12/18 09:[address] appreciated, will follow up with Abdominal US for RUQ. <Samuel Kidd - Last Filed: 11/12/18 13:01> *DC/Admit/Observation/Transfer - Discharge Dispostion Decision to Admit order: No <Doni Mendoza - Last Filed: 11/12/18 12:57> - Discharge Dispostion Decision to Admit order: No <Samuel Kidd - Last Filed: 11/12/18 13:01> Diagnosis at time of Disposition: Abdominal pain Qualifiers: Abdominal location: unspecified location Qualified Code(s): R10.9 - Unspecified abdominal pain - Discharge Dispostion Disposition: HOME Condition at time of disposition: Fair - Prescriptions Prescriptions: Ondansetron [Zofran Odt -] 4 mg SL TID #21 od.tablet - Referrals Referrals: Manjula Harley MD [Primary Care Provider] - - Patient Instructions Printed Discharge Instructions: DI for Abdominal Pain-Adult Additional Instructions: Take Zofran as prescribed. For today until tomorrow morning fluids only water, soup, Gatorade if no vomiting by tomorrow morning okay to proceed to a bland diet. Follow-up with your doctor in 2-3 days. Return to emergency department for any persistent vomiting returning abdominal pain or for any concerns. - Post Discharge Activity
[2018-11-12 09:01] VITALS: PULSE 65
--- NOTE | 2018-11-12 12:14 | EKG ---
Test Reason : Blood Pressure : / mmHG Vent. Rate : 076 BPM Atrial Rate : 076 BPM P-R Int : 246 ms QRS Dur : 096 ms QT Int : 432 ms P-R-T Axes : 067 -30 028 degrees QTc Int : 486 ms SINUS RHYTHM WITH 1ST DEGREE A-V BLOCK LEFT AXIS DEVIATION SEPTAL INFARCT (CITED ON OR BEFORE 28-DEC-2017) ABNORMAL ECG WHEN COMPARED WITH ECG OF 28-DEC-2017 18:16, CA INTERVAL HAS INCREASED T WAVE INVERSION NO LONGER EVIDENT IN ANTEROLATERAL LEADS QT HAS LENGTHENED Confirmed by RENETTA PRIETO MD ([id number]) on 11/12/2018 12:13:49 PM Referred By: Confirmed By:RENETTA PRIETO MD
[2018-11-12] MEDS ORDERED: ONDANSETRON 4 MG TABLET PO ONE (13:01)
[2018-11-12] MEDS ORDERED: ONDANSETRON *ODT* 4 MG TABLET ONE (13:38)
[2018-11-12 13:48] VITALS: BP 130/81; TEMP 98.2
== END 2018-11-12 14:18 | disposition home or self-care (01) ==
LOC: JER 06:20
DX: R10.9 Unspecified abdominal pain (principal); I25.119 Atherosclerotic heart disease of native coronary artery with unspecified angina pectoris; I11.0 Hypertensive heart disease with heart failure; E11.9 Type 2 diabetes mellitus without complications; Z79.84 Long term (current) use of oral hypoglycemic drugs; E78.00 Pure hypercholesterolemia, unspecified; Z85.3 Personal history of malignant neoplasm of breast
CPT/HCPCS: 36415; 71045-TC-FY; 74177-TC; 76705-TC; 80053; 81003; 82550; 82553; 83605; 83690; 83880; 84484; 85025; 85610; 86850; 86900; 86901; 87086; 93005; 93010; 99282-25

== ENCOUNTER 2019-09-09 13:02 | Emergency (ER) | payer OTHER ==
[2019-09-09 13:22] VITALS: BMI 24.4
[2019-09-09] MEDS ORDERED: ACETAMINOPHEN 325 MG TABLET (FP) PO ONE (13:33)
[2019-09-09] MEDS ORDERED: DIPHTH,PERTUSS(ACELL),TET 0.5 ML DISP.SYRIN IM ONE ×2 (13:42→13:54)
--- NOTE | 2019-09-09 13:47 | PDOC ---
History of Present Illness - General Chief Complaint: Injury Stated Complaint: FALL Time Seen by Provider: 09/09/19 13:22 History Source: Patient, Family Exam Limitations: No Limitations - History of Present Illness Initial Comments: 09/09/19 13:42 HPI 78 YOF with h/o HTN, HLD, DM2, neuropathy presenting with mechanical fall after tripping over cracked sidewalk. she fell back, hit her head, felt dazed, ?LOC. she hit the right side of her head/face, broke her glasses. complaining of right knee pain worse with movement, right sided facial pain and headache. +small area of bleeding from abrasion. no ASA or anticoagulant use. denies sz, AMS, focal weakness or paresthesias, neck or back pain, chest pain, dyspnea, abdominal pain, n/v. Allergies: codeine, lisinopril, sulfa Past Medical History/PSH: tubal ligation, hysterectomy, mastectomy; HTN, HLD, DM2 Social history: Lives with family. No tobacco, ETOH or drug use. Meds: as documented in EMR Family history: noncontributory Review of systems Constitutional: no fevers or chills. No weakness HEENT: +headache, +facial pain. No dizziness. No congestion. No visual/hearing disturbances. no ear pain. CVS: no cp or syncope. Resp: no sob. No cough. Gastrointestinal: no abdominal pain, nausea, vomiting MUSCULOSKELETAL: No joint pain and swelling. No neck or back pain. SKIN: no redness or skin changes, no discharge, no rash. No wounds. Hematologic: no easy bruising/bleeding. NEUROLOGIC: No headache, dizziness, LOC or altered mental status. No focal weakness, numbness or tingling. Psych: no anxiety or depression Allergic/Immunologic: +medication and food allergies All other systems reviewed and negative, or as documented in HPI. Physical exam General: GCS 15 NAD, well appearing HEENT: NCAT, PERRL, EOMI. right lateral eyebrow small abrasion, nonbleeding Airway intact. No battles sign or raccoon eyes. No e/o ocular. Dentition intact. No e/o septal hematoma, nasal bridge stable. Neck: neck supple, no midline C spine tenderness or deformity, ROM intact. No anterior mass or crepitus, trachea midline. Resp: Lungs clear bilaterally Chest: no clavicle or chest wall tenderness or crepitus CVS: RRR, 2+ pulses throughout. Abdomen: Abdomen soft, nontender, nondistended. Back: Back nontender, no midline spinal tenderness along cervical/thoracic/ lumbar spine, FROM, no stepoffs. MSK: Pelvis stable, Extremities symmetric, no deformities, proximal and distally; no pain on axial loading. FROM in all extrem. +right anterior knee diffusely tender, no joint laxity on anterior/posterior drawer testing. 5/5 plantar and dorsiflexion, SILT in all extrem. Neuro: Alert, oriented appropriately. CN II-XII grossly symmetric and intact. no focal neuro deficits. Sensation and strength intact throughout. Skin: intact, normal color and well perfused. 09/09/19 13:47 09/09/19 14:02 Past History - Past Medical History Allergies/Adverse Reactions: Allergies Allergy/AdvReac Type Severity Reaction Status Date / Time codeine Allergy Verified 09/09/19 13:22 lisinopril Allergy Verified 09/09/19 13:22 Sulfa (Sulfonamide Allergy Verified 09/09/19 13:22 Antibiotics) [Sulfa(Sulfonamide Antibiotics)] Home Medications: Ambulatory Orders Aspirin [ASA -] 81 mg PO DAILY 04/17/15 Glipizide Xl [Glucotrol Xl -] 2.5 mg PO DAILY 07/01/17 Simvastatin [Zocor -] 20 mg PO DAILY 07/01/17 Amlodipine Besylate [Norvasc -] 10 mg PO DAILY 10/17/17 Amitriptyline HCl [Elavil -] 10 mg PO HS 12/28/17 Furosemide [Lasix] 40 mg PO HS 12/28/17 Ondansetron [Zofran Odt -] 4 mg SL TID #21 od.tablet 11/12/18 Potassium Chloride 20 meq PO 11/12/18 Cancer: Yes (BREAST (Lt)) Cardiac Disorders: Yes (angina, chf) COPD: No CHF: Yes DVT: No Diabetes: Yes HTN: Yes Hypercholesterolemia: Yes - Immunization History Immunization Up to Date: Yes - Psycho Social/Smoking Cessation Hx Smoking Status: No Smoking History: Never smoked Have you smoked in the past 12 months: No Number of Cigarettes Smoked Daily: 20 If you are a former smoker, when did you quit?: 20 yrs ago Information on smoking cessation initiated: No Hx Alcohol Use: No Drug/Substance Use Hx: No Substance Use Type: None Hx Substance Use Treatment: No *Physical Exam - Vital Signs Last Vital Signs Temp Pulse Resp BP Pulse Ox 97.8 F 85 17 158/61 97 09/09/19 13:19 09/09/19 13:19 09/09/19 13:19 09/09/19 13:19 09/09/19 13:22 ED Treatment Course - RADIOLOGY Radiology Studies Ordered: Category Date Time Status CERVICAL SPINE CT W/O CONTR [CT] Stat CT Scan 09/09/19 13:[address] W/O CONTRAST [CT] Stat CT Scan 09/09/19 13:[address] WITHOUT CONTRAST [CT] Stat CT Scan 09/09/19 13:31 Ordered KNEE 3 POS-RIGHT [RAD] Stat Radiology 09/09/19 13:33 Ordered Medical Decision Making - Medical Decision Making 09/09/19 13:46 Vital Signs Temp Pulse Resp BP Pulse Ox 97.8 F 85 17 158/61 97 09/09/19 13:19 09/09/19 13:19 09/09/19 13:19 09/09/19 13:19 09/09/19 13:22 Trauma ddx: ICH, SDH/ EDH, C spine injury/strain, extremity sprain/fracture, MSK contusion, msk spasms. Rib fractures. Clinically doubt Intra abdominal and thoracic injuries/bleed Trauma Neg: No evidence of skull fracture, intracranial bleed, dental trauma, cervical, thoracic, or vertebral fracture or subluxation, no suspicion of thoracic, abdominal, pelvic or extremity injury by exam. GCS is 15, no focal neurologic deficits, will obtain CT head, facial and cervical spine to evaluate for fracture/bleeding/injury pattern. Knee x-ray given her pain. Analgesia with Tylenol. Tetanus status is unclear so will provide Boostrix. ambulatory, gait stable. xray knee unremarkable degenerative changes, no fx topical bacitracin and bandaid CTs unremarkable, no facial fx, no cervical fx, degenerative changes. no head bleed/ICH/SDH on CT head discharge stable condition, wound care, fall safety prevention reviewed. BP elevated, but also told to recheck as she took her norvasc, also in the hospital after fall and initial headache. recheck with primary, resume norvasc tomorrow. Pt to be discharged in stable condition. Patient and family made aware of clinical impression, treatment recommendations and disposition plan, return precautions discussed (including but not limited to new or persistent/worsening symptoms, pain, fevers, or signs of infection, chest pain, respiratory distress , inability to tolerate oral intake, dehydration, syncope, or neurologic changes ). Follow up with PMD as recommended, follow up information provided, take medications as instructed for duration of time. continue with supportive care, avoid triggers and precipitants. All questions answered to patient's satisfaction and expressed understanding and comfort with this. At the time of discharge, the patient is alert, clinically improved, tolerating po and verbalizes understanding of instructions, satisfied with the care received and felt comfortable with the plan. Patient does not suffer from an acute life- threatening medical condition at this time and is safe for outpatient follow- up. 09/09/19 13:47 09/09/19 14:13 09/09/19 17:59 Discharge - Discharge Information Problems reviewed: Yes Clinical Impression/Diagnosis: Fall, Contusion of face Facial abrasion Qualifiers: Encounter type: initial encounter Qualified Code(s): S00.81XA - Abrasion of other part of head, initial encounter Condition: Improved Disposition: HOME - Admission No - Follow up/Referral [place] [facility] [facility] [place] [facility] [[place]] [facility] [Provider Group] - Patient Discharge Instructions Patient Printed Discharge Instructions: How to Prevent Falls, DI for Abrasion Additional Instructions: CT results were negative for bleeding or fractures you have a small abrasion to your right side of your face topical neosporin or bacitracin and bandaid daily, keep area clean and dry. monitor for signs of infection, fever, discharge, odor, redness, worsening pain. you also have likely a concussion monitor for delayed bleeding - including vomiting, worsening headache, confusion, seizure, weakness, numbness, tingling, fall or inability to walk. you may take tylenol every 6 hours as needed for pain /headache. FALL PREVENTION AT HOME WHAT YOU NEED TO KNOW There are many different factors that can increase your risk of falls. Falls can happen any time, but the majority of them occur in the home. Fall prevention includes ways to make your home and other areas safer. It also includes ways you can move more carefully to prevent a fall. Health conditions that cause changes in your blood pressure, vision, or muscle strength and coordination may increase your risk for falls. Medicines, including anesthesia, may increase your risk for falls if they make you dizzy, weak, or sleepy. FALL PREVENTION TIPS Stand or sit up slowly. This may help you keep your balance and prevent falls. Do not walk and talk at the same time. Concentrate on the task of walking and continue the conversation after you've reached a safe place. Wear shoes that fit well and have soles that railroad passenger agent. Wear shoes both inside and outside. Use slippers with good railroad passenger agent. Avoid shoes with high heels. Use assistive devices as directed. Your healthcare provider may suggest that you use a cane or walker to help you keep you balance. Be sure you have adequate lighting throughout your house. Keep paths clear. Remove books, shoes and other objects from walkways and stairs. Keep cords for telephones and lamps out of the way so you dont need to walk over them. Remove small rugs or secure them with double-sided tape. This will prevent you from tripping. Use a nightlight when getting out of bed at night. Stay active to maintain overall strength and endurance. Know your limitations. If there is a task you can not complete with ease, do not risk a fall by trying to complete it. Call 911 or have someone else call if: You have fallen and are unconscious You have fallen and cannot move part of your body Contact your healthcare provider if: You have fallen and have pain or a headache You have questions or concerns about your condition or care. - Post Discharge Activity
[2019-09-09] MEDS ORDERED: ACETAMINOPHEN 325 MG TABLET (FP) ONE (13:52)
[2019-09-09 17:43] VITALS: BP 165/89; PULSE 75; TEMP 98.2
== END 2019-09-09 17:44 | disposition home or self-care (01) ==
LOC: JER 13:02
PROC: 3E0234Z Introduction of Serum, Toxoid and Vaccine into Muscle, Percutaneous Approach (ICD-10-PCS; principal; 2019-09-09)
DX: S00.83XA Contusion of other part of head, initial encounter (principal); S00.81XA Abrasion of other part of head, initial encounter; M25.561 Pain in right knee; W18.39XA Other fall on same level, initial encounter; Y93.17 Activity, water skiing and wake boarding; Y92.480 Sidewalk as the place of occurrence of the external cause; Y99.8 Other external cause status; I25.119 Atherosclerotic heart disease of native coronary artery with unspecified angina pectoris; I11.0 Hypertensive heart disease with heart failure; I50.9 Heart failure, unspecified; E78.00 Pure hypercholesterolemia, unspecified; E11.9 Type 2 diabetes mellitus without complications; Z79.84 Long term (current) use of oral hypoglycemic drugs; Z85.3 Personal history of malignant neoplasm of breast; Z88.2 Allergy status to sulfonamides; Z88.5 Allergy status to narcotic agent; Z88.8 Allergy status to other drugs, medicaments and biological substances
CPT/HCPCS: 70450-TC; 70486-TC; 72125-TC; 73562-TC-RT-FY; 90715; 99283-25

== ENCOUNTER 2021-02-24 18:07 | Observation (INO) | payer OTHER ==
[2021-02-24 20:06] VITALS: BMI 25.6
[2021-02-24 20:07] LABS: BASO % 0.5 % (0-2.0); HEMATOCRIT 33.7 % (32.4-45.2); HEMOGLOBIN 10.9 GM/dL (10.7-15.3); LYMPH % 31.1 % (8-40); MCH 26.1 pg (25.7-33.7); MCHC 32.4 g/dl (32.0-36.0); MEAN CELL VOLUME 80.5 fl (80-96); MEAN PLT VOLUME 8.3 fl (7.5-11.1); MONO % 11.4 % (3.8-10.2); PLATELET COUNT 274 K/MM3 (134-434); RBC 4.18 M/mm3 (3.60-5.2); RDW 15.2 % (11.6-15.6)
[2021-02-24 20:15] LABS: INR 0.98 (0.83-1.09); PROTHROMBIN TIME (PATIENT) 12.1 SEC (9.7-13.0)
[2021-02-24 20:18] LABS: ACTIVATED PTT 31.8 SECONDS (25.2-36.5)
[2021-02-24 20:25] LABS: CHLORIDE 105 mmol/L (98-107); SODIUM 139 mmol/L (136-145)
[2021-02-24 20:26] LABS: CALCIUM 9.1 mg/dL (8.5-10.1)
[2021-02-24 20:28] LABS: ALBUMIN 3.7 g/dl (3.4-5.0); ANION GAP 5 MMOL/L (8-16); BLOOD UREA NITROGEN 21.5 mg/dL (7-18); CO2 29 mmol/L (21-32); GLUCOSE,RANDOM 84 mg/dL (74-106)
[2021-02-24 20:29] LABS: MAGNESIUM 2.3 mg/dL (1.8-2.4)
[2021-02-24 20:30] LABS: CREATININE 0.8 mg/dL (0.55-1.3); SGOT/AST 14 U/L (15-37); SGPT/ALT 15 U/L (13-61)
[2021-02-24 20:32] LABS: BILIRUBIN,TOTAL 0.2 mg/dL (0.2-1); TOT PROT 7.5 g/dl (6.4-8.2)
[2021-02-24 20:33] LABS: ALK PHOS 74 U/L (45-117)
[2021-02-24 20:37] LABS: N-TERMINAL BNP 140.6 pg/ml (5-450)
[2021-02-24] MEDS ORDERED: ASPIRIN 81 MG CHEWABLE TABLETS PO ONE (21:05)
[2021-02-24] MEDS ORDERED: ASPIRIN 81 MG CHEWABLE TABLETS ONE (21:48)
[2021-02-25 07:53] LABS: BASO % 0.8 % (0-2.0); EOS % 2.4 % (0-4.5); HEMATOCRIT 34.1 % (32.4-45.2); HEMOGLOBIN 11.2 GM/dL (10.7-15.3); LYMPH % 38.8 % (8-40); MCH 26.4 pg (25.7-33.7); MCHC 32.8 g/dl (32.0-36.0); MEAN CELL VOLUME 80.4 fl (80-96); MONO % 12.9 % (3.8-10.2); NEUT % 45.1 % (42.8-82.8); PLATELET COUNT 279 K/MM3 (134-434); RBC 4.24 M/mm3 (3.60-5.2); RDW 15.1 % (11.6-15.6); WHITE BLOOD COUNT 4.5 K/mm3 (4.0-10.0)
[2021-02-25 08:07] LABS: CHLORIDE 105 mmol/L (98-107); SODIUM 139 mmol/L (136-145)
[2021-02-25 08:13] LABS: ALBUMIN 3.5 g/dl (3.4-5.0); ANION GAP 3 MMOL/L (8-16); BLOOD UREA NITROGEN 11.3 mg/dL (7-18); CALCIUM 9.2 mg/dL (8.5-10.1); CO2 31 mmol/L (21-32); GLUCOSE,RANDOM 75 mg/dL (74-106)
[2021-02-25 08:17] LABS: CREATININE 0.6 mg/dL (0.55-1.3); SGOT/AST 14 U/L (15-37); SGPT/ALT 14 U/L (13-61)
[2021-02-25 08:18] LABS: BILIRUBIN,TOTAL 0.4 mg/dL (0.2-1); TOT PROT 6.9 g/dl (6.4-8.2)
[2021-02-25 08:20] LABS: ALK PHOS 68 U/L (45-117)
[2021-02-25] MEDS: glipiZIDE-XL 2.5 MG TAB.ER.24 PO SCH (09:00)
[2021-02-25] MEDS ORDERED: POTASSIUM CHLORIDE TABS 20 MEQ TABLET.ER (FP) PO SCH (10:00)
[2021-02-25] MEDS ORDERED: ASPIRIN 81 MG CHEWABLE TABLETS PO SCH (10:00)
[2021-02-25] MEDS: amLODIPine BESYLATE 5 MG TABLET (FP) PO SCH (13:21)
[2021-02-25] MEDS: FUROSEMIDE 40 MG TABLET (FP) PO SCH (13:21)
[2021-02-25] MEDS ORDERED: ASPIRIN 81 MG CHEWABLE TABLETS ONE (13:25)
[2021-02-25] MEDS ORDERED: FUROSEMIDE 40 MG TABLET (FP) ONE (13:25)
[2021-02-25] MEDS ORDERED: POTASSIUM CHLORIDE TABS 20 MEQ TABLET.ER (FP) PO ONE (13:26)
[2021-02-25] MEDS ORDERED: ROSUVASTATIN CA 5 MG TABLET (FP) PO SCH (22:00)
[2021-02-25] MEDS ORDERED: FUROSEMIDE 40 MG TABLET (FP) PO SCH ×2 (22:00)
[2021-02-25] MEDS ORDERED: ACETAMINOPHEN 1000 MG/100 ML VIAL (NON FORMULARY) IVPB ONE (22:16)
[2021-02-25] MEDS ORDERED: ACETAMINOPHEN INJECTION 100 ML IVPB ONE (22:36)
[2021-02-26] MEDS: glipiZIDE-XL 2.5 MG TAB.ER.24 PO SCH (06:31)
[2021-02-26] MEDS ORDERED: FUROSEMIDE 40 MG TABLET (FP) ONE (07:47)
[2021-02-26] MEDS ORDERED: amLODIPine BESYLATE 5 MG TABLET (FP) ONE (07:47)
[2021-02-26] MEDS: FUROSEMIDE 40 MG TABLET (FP) PO SCH (08:21)
[2021-02-26] MEDS: amLODIPine BESYLATE 5 MG TABLET (FP) PO SCH (08:21)
[2021-02-26] MEDS ORDERED: REGADENOSON 0.4 MG/5 ML PRE-FILLED SYRINGE IVPUSH ONE ×2 (09:28→10:00)
[2021-02-26 17:14] VITALS: BP 135/63; PULSE 73; TEMP 98.3
[2021-02-26] MEDS ORDERED: CARVEDILOL 3.125 MG TABLET (FP) PO SCH (22:00)
== END 2021-02-26 18:22 | disposition home or self-care (01) ==
LOC: JER 18:07 → JERBED 22:03 → INTOOBSV 22:03 → UNDOADMOB 22:03 → JERBED 22:10
PROVIDERS: ADMIT Hospitalist; ATTEND Internal Medicine
PROC: 3E033NZ Introduction of Analgesics, Hypnotics, Sedatives into Peripheral Vein, Percutaneous Approach (ICD-10-PCS; principal; 2021-02-24)
PROC: 3E033GC Introduction of Other Therapeutic Substance into Peripheral Vein, Percutaneous Approach (ICD-10-PCS; 2021-02-24)
DX: R07.9 Chest pain, unspecified (principal); I25.10 Atherosclerotic heart disease of native coronary artery without angina pectoris; E13.40 Other specified diabetes mellitus with diabetic neuropathy, unspecified; I11.0 Hypertensive heart disease with heart failure; E78.5 Hyperlipidemia, unspecified; E85.3 Secondary systemic amyloidosis; Z20.822 Contact with and (suspected) exposure to COVID-19; I73.9 Peripheral vascular disease, unspecified; Z29.9 Encounter for prophylactic measures, unspecified; Z87.891 Personal history of nicotine dependence
CPT/HCPCS: 36415; 71045-TC-FY; 78452-TC; 80053; 82550; 82962; 83735; 83880; 84443; 84484; 85025; 85610; 85730; 93005; 93010; 93017; 93970-TC; 96374; 96375; 99285-25; A9502; C1887; C9803; G0378; J0131; J2785; U0003; U0005

== ENCOUNTER 2021-08-18 15:22 | Emergency (ER) | payer OTHER ==
[2021-08-18 15:31] VITALS: TEMP 98; BMI 24.7
[2021-08-18 16:24] LABS: EOS % 0.8 % (0-4.5); HEMATOCRIT 33.8 % (32.4-45.2); HEMOGLOBIN 11.2 GM/dL (10.7-15.3); LYMPH % 26.7 % (8-40); MCH 26.3 pg (25.7-33.7); MEAN CELL VOLUME 79.6 fl (80-96); MEAN PLT VOLUME 7.5 fl (7.5-11.1); MONO % 13.3 % (3.8-10.2); NEUT % 57.2 % (42.8-82.8); PLATELET COUNT 245 10^3/uL (134-434); RBC 4.24 M/mm3 (3.60-5.2); WHITE BLOOD COUNT 5.1 K/mm3 (4.0-10.0)
[2021-08-18 16:31] LABS: INR 0.94 (0.83-1.09); PROTHROMBIN TIME (PATIENT) 11.5 SEC (9.7-13.0)
[2021-08-18 16:34] LABS: ACTIVATED PTT 28.2 SECONDS (25.2-36.5)
[2021-08-18 18:06] LABS: BLOOD UREA NITROGEN 18.4 mg/dL (7-18); CALCIUM 9.4 mg/dL (8.5-10.1); CHLORIDE 105 mmol/L (98-107); CO2 31 mmol/L (21-32); CREATININE 0.8 mg/dL (0.55-1.3); GLUCOSE,RANDOM 98 mg/dL (74-106); MAGNESIUM 2.5 mg/dL (1.8-2.4); SODIUM 140 mmol/L (136-145); TOT PROT 7.7 g/dl (6.4-8.2)
[2021-08-18 18:07] LABS: ALBUMIN 3.8 g/dl (3.4-5.0); ALK PHOS 62 U/L (45-117); BILIRUBIN,TOTAL 0.3 mg/dL (0.2-1); N-TERMINAL BNP 183.22 pg/ml (5-450); SGOT/AST 23 U/L (15-37); SGPT/ALT 21 U/L (13-61)
[2021-08-18 18:08] LABS: ANION GAP 4 MMOL/L (8-16)
[2021-08-18 18:42] VITALS: BP 152/69; PULSE 68
== END 2021-08-18 19:21 | disposition home or self-care (01) ==
LOC: JER 15:22
DX: R20.2 Paresthesia of skin (principal)
CPT/HCPCS: 36415; 70450-TC; 71046-TC-FY; 80053; 82550; 83735; 83880; 84484; 85025; 85610; 85730; 86850; 86900; 86901; 93005; 93010; 99285-25

== ENCOUNTER 2021-12-09 22:45 | Observation (INO) | payer OTHER ==
[2021-12-10 00:09] LABS: BASO % 0.8 % (0-2.0); EOS % 0.4 % (0-4.5); HEMATOCRIT 36.1 % (32.4-45.2); HEMOGLOBIN 11.5 GM/dL (10.7-15.3); MCH 25.4 pg (25.7-33.7); MCHC 31.9 g/dl (32.0-36.0); MEAN CELL VOLUME 79.6 fl (80-96); MONO % 10.1 % (3.8-10.2); NEUT % 70.7 % (42.8-82.8); PLATELET COUNT 274 10^3/uL (134-434); RBC 4.53 M/mm3 (3.60-5.2); RDW 15.2 % (11.6-15.6)
[2021-12-10] MEDS ORDERED: ASPIRIN 81 MG CHEWABLE TABLETS PO ONE (00:37)
[2021-12-10] MEDS ORDERED: ASPIRIN 81 MG CHEWABLE TABLETS ONE ×2 (00:38→08:28)
[2021-12-10 00:43] LABS: URINE APPEARANCE CLEAR; URINE BILIRUBIN NEGATIVE (NEGATIVE); URINE COLOR YELLOW; URINE GLUCOSE (UA) NEGATIVE (NEGATIVE); URINE KETONE TRACE (NEGATIVE); URINE LEUK ESTERASE NEGATIVE (NEGATIVE); URINE NITRITE NEGATIVE (NEGATIVE); URINE PROTEIN TRACE (NEGATIVE); URINE UROBILINOGEN 0.2 mg/dL (0.2-1.0)
[2021-12-10 00:50] LABS: CHLORIDE 103 mmol/L (98-107); SODIUM 134 mmol/L (136-145)
[2021-12-10 00:52] LABS: CALCIUM 9.2 mg/dL (8.5-10.1)
[2021-12-10 00:53] LABS: ALBUMIN 3.9 g/dl (3.4-5.0); BLOOD UREA NITROGEN 24.8 mg/dL (7-18); CO2 26 mmol/L (21-32); GLUCOSE,RANDOM 147 mg/dL (74-106); LIPASE 168 U/L (73-393)
[2021-12-10 00:55] LABS: CREATININE 0.9 mg/dL (0.55-1.3)
[2021-12-10 00:56] LABS: SGOT/AST 35 U/L (15-37); SGPT/ALT 17 U/L (13-61)
[2021-12-10 00:57] LABS: BILIRUBIN,TOTAL 0.3 mg/dL (0.2-1)
[2021-12-10 00:58] LABS: ALK PHOS 68 U/L (45-117)
[2021-12-10 01:46] LABS: ANION GAP 5 MMOL/L (8-16)
[2021-12-10 03:13] LABS: CHLORIDE 107 mmol/L (98-107); SODIUM 140 mmol/L (136-145)
[2021-12-10 03:15] LABS: ALBUMIN 3.6 g/dl (3.4-5.0); ANION GAP 7 MMOL/L (8-16); CO2 27 mmol/L (21-32); GLUCOSE,RANDOM 136 mg/dL (74-106)
[2021-12-10 03:16] LABS: BLOOD UREA NITROGEN 22.5 mg/dL (7-18)
[2021-12-10 03:18] LABS: CREATININE 0.8 mg/dL (0.55-1.3); SGPT/ALT 13 U/L (13-61)
[2021-12-10 03:19] LABS: SGOT/AST 14 U/L (15-37)
[2021-12-10 03:20] LABS: BILIRUBIN,TOTAL 0.2 mg/dL (0.2-1); TOT PROT 7.1 g/dl (6.4-8.2)
[2021-12-10 03:21] LABS: ALK PHOS 62 U/L (45-117)
[2021-12-10] MEDS ORDERED: POLYETHYLENE GLYCOL (HEALTHYLAX) 3350 17 GM PACKET PO PRN (03:35)
[2021-12-10] MEDS ORDERED: ACETAMINOPHEN 325 MG TABLET (FP) PO PRN (03:35)
[2021-12-10] MEDS ORDERED: amLODIPine BESYLATE 5 MG TABLET (FP) ONE (08:28)
[2021-12-10] MEDS ORDERED: metoPROLOL SUCCINATE 25 MG TAB.SR.24H (FP) ONE (08:28)
[2021-12-10] MEDS ORDERED: ENOXAPARIN NA (PORCINE) 40 MG/0.4 ML DISP.SYRIN SQ ONE (08:28)
[2021-12-10] MEDS: ASPIRIN 81 MG CHEWABLE TABLETS PO SCH (09:08)
[2021-12-10] MEDS: ENOXAPARIN NA (PORCINE) 40 MG/0.4 ML DISP.SYRIN SQ SCH (09:08)
[2021-12-10] MEDS: INSULIN SLIDING SCALE (NOVOLOG) 1 VIAL SQ SCH ×3 (09:08→18:05)
[2021-12-10] MEDS: amLODIPine BESYLATE 10 MG TABLET (FP) PO SCH (09:08)
[2021-12-10] MEDS: metoPROLOL SUCCINATE 25 MG TAB.SR.24H (FP) PO SCH (09:09)
[2021-12-10 09:21] LABS: BASO % 1.1 % (0-2.0); EOS % 1.2 % (0-4.5); HEMATOCRIT 34.3 % (32.4-45.2); HEMOGLOBIN 11.2 GM/dL (10.7-15.3); LYMPH % 26.7 % (8-40); MCH 26.1 pg (25.7-33.7); MCHC 32.8 g/dl (32.0-36.0); MEAN CELL VOLUME 79.4 fl (80-96); MONO % 13.3 % (3.8-10.2); NEUT % 57.7 % (42.8-82.8); PLATELET COUNT 246 10^3/uL (134-434); RBC 4.31 M/mm3 (3.60-5.2); RDW 14.7 % (11.6-15.6); WHITE BLOOD COUNT 4.6 K/mm3 (4.0-10.0)
[2021-12-10 09:27] LABS: PROTHROMBIN TIME (PATIENT) 11.5 SEC (9.7-13.0)
[2021-12-10 09:29] LABS: ACTIVATED PTT 31.1 SECONDS (25.2-36.5)
[2021-12-10 09:49] LABS: MAGNESIUM 2.5 mg/dL (1.8-2.4)
[2021-12-10 10:16] LABS: PLATELET ESTIMATE NORMAL
[2021-12-10] MEDS ORDERED: PANTOPRAZOLE 40 MG TABLET ONE (14:35)
[2021-12-10] MEDS: hydrALAZINE HCL 50 MG TABLET (FP) PO SCH ×2 (15:34→22:35)
[2021-12-10] MEDS: PANTOPRAZOLE 40 MG TABLET PO SCH (15:35)
[2021-12-10] MEDS ORDERED: ROSUVASTATIN CA 5 MG TABLET PO SCH (22:00)
[2021-12-10] MEDS ORDERED: hydrALAZINE HCL 25 MG TABLET (FP) ONE (22:48)
[2021-12-11] MEDS: INSULIN SLIDING SCALE (NOVOLOG) 1 VIAL SQ SCH ×4 (01:08→16:54)
[2021-12-11 08:59] VITALS: BMI 25.8
[2021-12-11] MEDS: amLODIPine BESYLATE 10 MG TABLET (FP) PO SCH (09:22)
[2021-12-11] MEDS: hydrALAZINE HCL 50 MG TABLET (FP) PO SCH (09:22)
[2021-12-11] MEDS ORDERED: REGADENOSON 0.4 MG/5 ML PRE-FILLED SYRINGE IVPUSH ONE ×2 (09:45→12:16)
[2021-12-11] MEDS: metoPROLOL SUCCINATE 25 MG TAB.SR.24H (FP) PO SCH (14:55)
[2021-12-11] MEDS: ASPIRIN 81 MG CHEWABLE TABLETS PO SCH (14:56)
[2021-12-11] MEDS: ENOXAPARIN NA (PORCINE) 40 MG/0.4 ML DISP.SYRIN SQ SCH (14:56)
[2021-12-11] MEDS: PANTOPRAZOLE 40 MG TABLET PO SCH (14:56)
[2021-12-11 18:10] VITALS: BP 149/59; PULSE 74; TEMP 98.1
== END 2021-12-11 19:30 | disposition home or self-care (01) ==
LOC: JER 22:45 → INTOOBSV 12-10 00:39 → JERBED 12-10 00:39 → J4W 12-11 04:21
PROVIDERS: ADMIT Internal Medicine; ATTEND Internal Medicine
PROC: 3E023GC Introduction of Other Therapeutic Substance into Muscle, Percutaneous Approach (ICD-10-PCS; principal; 2021-12-10)
PROC: 3E033GC Introduction of Other Therapeutic Substance into Peripheral Vein, Percutaneous Approach (ICD-10-PCS; 2021-12-10)
DX: I25.10 Atherosclerotic heart disease of native coronary artery without angina pectoris (principal); E78.5 Hyperlipidemia, unspecified; I10 Essential (primary) hypertension; I25.2 Old myocardial infarction; R10.13 Epigastric pain; I11.9 Hypertensive heart disease without heart failure; G62.9 Polyneuropathy, unspecified; I73.9 Peripheral vascular disease, unspecified; Z85.3 Personal history of malignant neoplasm of breast; I99.8 Other disorder of circulatory system; Z86.79 Personal history of other diseases of the circulatory system; R94.31 Abnormal electrocardiogram [ECG] [EKG]; Z86.39 Personal history of other endocrine, nutritional and metabolic disease; Z88.6 Allergy status to analgesic agent; Z88.2 Allergy status to sulfonamides; Z88.8 Allergy status to other drugs, medicaments and biological substances; Z87.891 Personal history of nicotine dependence
CPT/HCPCS: 36415; 71046-TC-FY; 78452-TC; 80053; 81003; 82550; 82962; 83605; 83690; 83735; 84484; 85025; 85610; 85730; 87086; 93005; 93010; 93017; 93306-TC; 96372; 96374; 99285-25; A9502; C1887; C9803; G0378; J2785; U0003; U0005

== ENCOUNTER 2022-02-08 13:41 | Observation (INO) | payer OTHER ==
[2022-02-08 14:04] VITALS: BMI 27.1
[2022-02-08 16:33] LABS: BASO % 0.4 % (0-2.0); EOS % 0.7 % (0-4.5); HEMATOCRIT 36.8 % (32.4-45.2); HEMOGLOBIN 11.7 GM/dL (10.7-15.3); LYMPH % 32.1 % (8-40); MCH 25.2 pg (25.7-33.7); MCHC 31.9 g/dl (32.0-36.0); MEAN CELL VOLUME 79.2 fl (80-96); MEAN PLT VOLUME 8.3 fl (7.5-11.1); MONO % 12.8 % (3.8-10.2); PLATELET COUNT 266 10^3/uL (134-434); RBC 4.65 M/mm3 (3.60-5.2); RDW 15.4 % (11.6-15.6)
[2022-02-08 16:52] LABS: CALCIUM 9.5 mg/dL (8.5-10.1)
[2022-02-08 16:53] LABS: BLOOD UREA NITROGEN 15.7 mg/dL (7-18); MAGNESIUM 2.4 mg/dL (1.8-2.4)
[2022-02-08 16:56] LABS: CREATININE 0.7 mg/dL (0.55-1.3)
[2022-02-08 16:57] LABS: BILIRUBIN,TOTAL 0.3 mg/dL (0.2-1); TOT PROT 7.8 g/dl (6.4-8.2)
[2022-02-08 19:54] LABS: PH,URINE 7.5 (5.0-8.0); URINE APPEARANCE CLEAR; URINE BILIRUBIN NEGATIVE (NEGATIVE); URINE COLOR YELLOW; URINE GLUCOSE (UA) NEGATIVE (NEGATIVE); URINE KETONE NEGATIVE (NEGATIVE); URINE LEUK ESTERASE NEGATIVE (NEGATIVE); URINE NITRITE NEGATIVE (NEGATIVE); URINE PROTEIN TRACE (NEGATIVE)
[2022-02-09] MEDS ORDERED: oxyCODONE HCL 5 MG TABLET PO PRN (04:40)
[2022-02-09 07:01] LABS: BASO % 0.4 % (0-2.0); EOS % 1.7 % (0-4.5); HEMATOCRIT 34.5 % (32.4-45.2); HEMOGLOBIN 11.3 GM/dL (10.7-15.3); MCH 25.7 pg (25.7-33.7); MCHC 32.8 g/dl (32.0-36.0); MEAN CELL VOLUME 78.3 fl (80-96); MEAN PLT VOLUME 7.8 fl (7.5-11.1); MONO % 13.7 % (3.8-10.2); NEUT % 47.2 % (42.8-82.8); PLATELET COUNT 259 10^3/uL (134-434); RBC 4.41 M/mm3 (3.60-5.2); RDW 15.4 % (11.6-15.6); WHITE BLOOD COUNT 3.6 K/mm3 (4.0-10.0)
[2022-02-09 07:15] LABS: CALCIUM 9.5 mg/dL (8.5-10.1); MAGNESIUM 2.3 mg/dL (1.8-2.4)
[2022-02-09 07:19] LABS: CREATININE 0.7 mg/dL (0.55-1.3)
[2022-02-09] MEDS: metoPROLOL SUCCINATE 25 MG TAB.SR.24H (FP) PO SCH (09:41)
[2022-02-09] MEDS: POTASSIUM CHLORIDE TABS 20 MEQ TABLET.ER (FP) PO SCH (09:41)
[2022-02-09] MEDS: amLODIPine BESYLATE 5 MG TABLET (FP) PO SCH (09:41)
[2022-02-09] MEDS: ASPIRIN 81 MG CHEWABLE TABLETS PO SCH (09:41)
[2022-02-09] MEDS: hydrALAZINE HCL 50 MG TABLET (FP) PO SCH ×2 (09:41→21:27)
[2022-02-09] MEDS: CHOLECALCIFEROL (VIT D3) 1,000 UNIT (25 MCG) TABLET PO SCH (09:41)
[2022-02-09 18:07] LABS: SARS-CoV-2 NAA Not Detected (Not Detected)
[2022-02-09] MEDS: FUROSEMIDE 20 MG TABLET (FP) PO SCH (21:28)
[2022-02-09] MEDS: ROSUVASTATIN CA 5 MG TABLET PO SCH (21:28)
[2022-02-09] MEDS ORDERED: metoPROLOL SUCCINATE 25 MG TAB.SR.24H (FP) PO SCH (22:00)
[2022-02-10] MEDS: hydrALAZINE HCL 50 MG TABLET (FP) PO SCH ×2 (10:31→21:43)
[2022-02-10] MEDS: CHOLECALCIFEROL (VIT D3) 1,000 UNIT (25 MCG) TABLET PO SCH (10:32)
[2022-02-10] MEDS: POTASSIUM CHLORIDE TABS 20 MEQ TABLET.ER (FP) PO SCH (10:32)
[2022-02-10] MEDS: ASPIRIN 81 MG CHEWABLE TABLETS PO SCH (10:32)
[2022-02-10] MEDS: metoPROLOL SUCCINATE 25 MG TAB.SR.24H (FP) PO SCH (10:32)
[2022-02-10] MEDS: amLODIPine BESYLATE 5 MG TABLET (FP) PO SCH (10:32)
[2022-02-10] MEDS: FUROSEMIDE 20 MG TABLET (FP) PO SCH (21:43)
[2022-02-10] MEDS: ROSUVASTATIN CA 5 MG TABLET PO SCH (21:43)
[2022-02-11] MEDS: hydrALAZINE HCL 50 MG TABLET (FP) PO SCH (09:05)
[2022-02-11] MEDS: CHOLECALCIFEROL (VIT D3) 1,000 UNIT (25 MCG) TABLET PO SCH (09:08)
[2022-02-11] MEDS: ASPIRIN 81 MG CHEWABLE TABLETS PO SCH (09:08)
[2022-02-11] MEDS: metoPROLOL SUCCINATE 25 MG TAB.SR.24H (FP) PO SCH (09:08)
[2022-02-11] MEDS: POTASSIUM CHLORIDE TABS 20 MEQ TABLET.ER (FP) PO SCH (09:09)
[2022-02-11] MEDS: amLODIPine BESYLATE 5 MG TABLET (FP) PO SCH (09:09)
[2022-02-11 09:42] VITALS: BP 129/68; PULSE 65; TEMP 98.7
== END 2022-02-11 18:32 | disposition home or self-care (01) ==
LOC: JER 13:41 → JERBED 19:27 → J4W 02-09 02:29
PROVIDERS: ADMIT Internal Medicine; ATTEND Internal Medicine
DX: Z85.3 Personal history of malignant neoplasm of breast (principal); I25.2 Old myocardial infarction; I11.0 Hypertensive heart disease with heart failure; I50.30 Unspecified diastolic (congestive) heart failure; E78.5 Hyperlipidemia, unspecified; I25.10 Atherosclerotic heart disease of native coronary artery without angina pectoris; Z88.2 Allergy status to sulfonamides; Z88.6 Allergy status to analgesic agent; Z88.8 Allergy status to other drugs, medicaments and biological substances; E11.9 Type 2 diabetes mellitus without complications; Z87.891 Personal history of nicotine dependence; I73.9 Peripheral vascular disease, unspecified
CPT/HCPCS: 36415; 70450-TC; 71046-TC-FY; 72125-TC; 73590-TC-RT-FY; 73610-TC-RT-FY; 73630-TC-RT-FY; 80048; 80053; 81003; 83735; 83880; 84484; 85025; 87086; 93005; 93010; 93880-TC; 99285-25; C9803-CS; G0378; U0003; U0005

== ENCOUNTER 2022-02-16 10:27 | Emergency (ER) | payer OTHER ==
[2022-02-16 10:45] VITALS: BP 156/66; PULSE 72; TEMP 98; BMI 24.0
[2022-02-16] MEDS ORDERED: ACETAMINOPHEN 325 MG TABLET (FP) PO ONE (11:39)
[2022-02-16] MEDS ORDERED: LIDOCAINE 5% TOPICAL PATCH TP ONE (11:39)
[2022-02-16] MEDS ORDERED: LIDOCAINE 5% TOPICAL PATCH ONE (13:24)
[2022-02-16] MEDS ORDERED: ACETAMINOPHEN 325 MG TABLET (FP) ONE (13:24)
[2022-02-16] MEDS ORDERED: LIDOCAINE PATCH REMOVAL MC SCH (22:00)
== END 2022-02-16 15:10 | disposition home or self-care (01) ==
LOC: JER 10:27
DX: M54.50 Low back pain, unspecified (principal)
CPT/HCPCS: 72100-TC-FY; 72170-TC-FY; 93005; 93010; 99284-25

== ENCOUNTER 2022-04-16 22:20 | Emergency (ER) | payer OTHER ==
[2022-04-16 22:31] VITALS: BP 128/60; PULSE 83; TEMP 98.6; BMI 25.7
== END 2022-04-17 01:36 | disposition left against medical advice (07) ==
LOC: JER 22:20
DX: F41.9 Anxiety disorder, unspecified (principal)
CPT/HCPCS: 99281-25

== ENCOUNTER 2022-06-28 13:56 | Emergency (ER) | payer OTHER ==
[2022-06-28 14:07] VITALS: BP 165/72; PULSE 78; RESP 18; TEMP 98.4; BMI 26.4
[2022-06-28] MEDS ORDERED: DIPHTH,PERTUSS(ACELL),TET 0.5 ML DISP.SYRIN IM ONE ×2 (14:47→14:55)
[2022-06-28] MEDS ORDERED: LIDOCAINE HCL 1%, 10 MG/ML (50 mL VIAL) INF ONE (14:54)
[2022-06-28] MEDS ORDERED: LIDOCAINE HCL 1%, 10 MG/ML (20ML VIAL) ONE (14:55)
== END 2022-06-28 15:40 | disposition home or self-care (01) ==
LOC: JERFT 13:56
PROC: 0HQGXZZ Repair Left Hand Skin, External Approach (ICD-10-PCS; principal; 2022-06-28)
PROC: 3E0234Z Introduction of Serum, Toxoid and Vaccine into Muscle, Percutaneous Approach (ICD-10-PCS; 2022-06-28)
DX: S61.213A Laceration without foreign body of left middle finger without damage to nail, initial encounter (principal); W26.0XXA Contact with knife, initial encounter; Y93.G1 Activity, food preparation and clean up
CPT/HCPCS: 12001-25; 90471; 90715; 99284-25

== ENCOUNTER 2023-07-14 04:35 | Day surgery (SDC) | payer OTHER ==
[2023-07-10 15:53] VITALS: BMI 24.3
[2023-07-14] MEDS ORDERED: BUPIVACAINE HCL/PF 0.5% (5MG/ML) 10 ML VIAL ONE (10:12)
[2023-07-14] MEDS ORDERED: LIDOCAINE HCL 1%, 10 MG/ML (20ML VIAL) ONE (10:12)
[2023-07-14] MEDS ORDERED: PROPOFOL 40 ML ONE (12:27)
[2023-07-14] MEDS ORDERED: LIDOCAINE HCL/PF 2% SDV 5ML VIAL ONE (12:27)
[2023-07-14] MEDS ORDERED: MIDAZOLAM HCL 2 MG/2 ML SINGLE DOSE VIAL ONE ×2 (12:27→12:49)
[2023-07-14] MEDS ORDERED: ceFAZolin SODIUM 1 GM VIAL ONE (12:52)
[2023-07-14] MEDS ORDERED: DEXAMETHASONE SOD PHOSPHATE 4 MG/1 ML VIAL ONE (12:52)
[2023-07-14] MEDS ORDERED: KETOROLAC TROMETHAMINE 30 MG/1 ML VIAL ONE (12:56)
[2023-07-14] MEDS ORDERED: ONDANSETRON 4 MG/2 ML VIAL ONE (12:56)
[2023-07-14 13:58] VITALS: RESP 20
[2023-07-14 16:02] VITALS: BP 135/64; PULSE 62; TEMP 97.8
== END 2023-07-14 16:00 | disposition home or self-care (01) ==
LOC: JASU-SURG 04:35
PROVIDERS: ATTEND Orthopaedic Surgery
PROC: 01S50ZZ Reposition Median Nerve, Open Approach (ICD-10-PCS; principal; 2023-07-14 13:02)
DX: G56.01 Carpal tunnel syndrome, right upper limb (principal)
CPT/HCPCS: 88304-TC

== ENCOUNTER 2024-05-25 11:53 | Emergency (ER) | payer OTHER ==
[2024-05-25 12:27] VITALS: RESP 18; TEMP 97.5; BMI 24.3
[2024-05-25] MEDS ORDERED: amLODIPine BESYLATE 10 MG TABLET (FP) ONE (14:27)
[2024-05-25] MEDS ORDERED: metoPROLOL SUCCINATE 25 MG TAB.SR.24H (FP) PO ONE (14:27)
[2024-05-25] MEDS: amLODIPine BESYLATE 10 MG TABLET (FP) PO ONE (14:44)
[2024-05-25] MEDS: metoPROLOL SUCCINATE 25 MG TAB.SR.24H (FP) PO ONE (14:44)
[2024-05-25 14:48] LABS: BASO % 1.1 % (0-2.0); EOS % 0.9 % (0-4.5); HEMATOCRIT 36.7 % (32.4-45.2); HEMOGLOBIN 11.9 GM/dL (10.7-15.3); LYMPH % 28.1 % (8-40); MCH 26.2 pg (25.7-33.7); MCHC 32.3 g/dl (32.0-36.0); MEAN CELL VOLUME 81.1 fl (80-96); MEAN PLT VOLUME 7.8 fl (7.5-11.1); MONO % 13.5 % (3.8-10.2); NEUT % 56.4 % (42.8-82.8); PLATELET COUNT 247 10^3/uL (134-434); RBC 4.53 M/mm3 (3.60-5.2); RDW 15.6 % (11.6-15.6); WHITE BLOOD COUNT 4.8 K/mm3 (4.0-10.0)
[2024-05-25 15:13] LABS: POTASSIUM 4.5 mmol/L (3.5-5.1)
[2024-05-25 15:16] LABS: CALCIUM 9.4 mg/dL (8.5-10.1)
[2024-05-25 15:17] LABS: ALBUMIN 3.8 g/dl (3.4-5.0); BLOOD UREA NITROGEN 16.3 mg/dL (7-18); MAGNESIUM 2.3 mg/dL (1.8-2.4)
[2024-05-25 15:20] LABS: CREATININE 0.8 mg/dL (0.55-1.3)
[2024-05-25 15:21] LABS: TOT PROT 7.6 g/dl (6.4-8.2)
[2024-05-25 15:22] VITALS: PULSE 64
[2024-05-25 15:22] LABS: BILIRUBIN,TOTAL 0.3 mg/dL (0.2-1)
[2024-05-25 16:02] VITALS: BP 163/65
[2024-05-25 16:15] LABS: PH,URINE 7.5 (5.0-8.0); URINE APPEARANCE CLEAR; URINE BILIRUBIN NEGATIVE (NEGATIVE); URINE COLOR YELLOW; URINE GLUCOSE (UA) NEGATIVE (NEGATIVE); URINE KETONE NEGATIVE (NEGATIVE); URINE LEUK ESTERASE NEGATIVE (NEGATIVE); URINE NITRITE NEGATIVE (NEGATIVE); URINE PROTEIN TRACE (NEGATIVE)
== END 2024-05-25 18:12 | disposition home or self-care (01) ==
LOC: JER 11:53
DX: R51.9 Headache, unspecified (principal); I10 Essential (primary) hypertension; R42 Dizziness and giddiness
CPT/HCPCS: 36415; 70450-TC; 80053; 81003; 83735; 84484; 85025; 87086; 93005; 93010; 99285-25

== ENCOUNTER 2024-05-27 10:46 | Observation (INO) | payer OTHER ==
[2024-05-27 12:15] LABS: BASO % 0.6 % (0-2.0); EOS % 0.4 % (0-4.5); HEMATOCRIT 36.1 % (32.4-45.2); LYMPH % 18.2 % (8-40); MCH 26.3 pg (25.7-33.7); MCHC 33.1 g/dl (32.0-36.0); MEAN CELL VOLUME 79.3 fl (80-96); MONO % 9.1 % (3.8-10.2); NEUT % 71.7 % (42.8-82.8); PLATELET COUNT 276 10^3/uL (134-434); RBC 4.56 M/mm3 (3.60-5.2); RDW 15.4 % (11.6-15.6); WHITE BLOOD COUNT 5.1 K/mm3 (4.0-10.0)
[2024-05-27 12:35] LABS: POTASSIUM 4.8 mmol/L (3.5-5.1)
[2024-05-27 12:37] LABS: CALCIUM 9.3 mg/dL (8.5-10.1)
[2024-05-27 12:38] LABS: ALBUMIN 3.8 g/dl (3.4-5.0); BLOOD UREA NITROGEN 25.3 mg/dL (7-18); MAGNESIUM 2.5 mg/dL (1.8-2.4)
[2024-05-27 12:41] LABS: CREATININE 0.9 mg/dL (0.55-1.3)
[2024-05-27 12:42] LABS: BILIRUBIN,TOTAL 0.6 mg/dL (0.2-1); TOT PROT 7.8 g/dl (6.4-8.2)
[2024-05-27 20:40] VITALS: RESP 18
[2024-05-27] MEDS ORDERED: ROSUVASTATIN CA 5 MG TABLET ONE (22:18)
[2024-05-27] MEDS: ROSUVASTATIN CA 5 MG TABLET PO SCH (22:22)
[2024-05-28 03:11] VITALS: BMI 23.8
[2024-05-28 07:34] LABS: POTASSIUM 4.1 mmol/L (3.5-5.1)
[2024-05-28 07:39] LABS: BASO % 0.6 % (0-2.0); EOS % 1.5 % (0-4.5); HEMATOCRIT 35.7 % (32.4-45.2); HEMOGLOBIN 11.7 GM/dL (10.7-15.3); LYMPH % 28.1 % (8-40); MCH 25.9 pg (25.7-33.7); MCHC 32.8 g/dl (32.0-36.0); MEAN CELL VOLUME 78.9 fl (80-96); MEAN PLT VOLUME 8.1 fl (7.5-11.1); MONO % 14.3 % (3.8-10.2); NEUT % 55.5 % (42.8-82.8); PLATELET COUNT 269 10^3/uL (134-434); RBC 4.52 M/mm3 (3.60-5.2); RDW 15.5 % (11.6-15.6); WHITE BLOOD COUNT 4.6 K/mm3 (4.0-10.0)
[2024-05-28 07:41] LABS: BLOOD UREA NITROGEN 25.7 mg/dL (7-18); CALCIUM 9.5 mg/dL (8.5-10.1)
[2024-05-28 07:42] LABS: ALBUMIN 3.8 g/dl (3.4-5.0)
[2024-05-28 07:45] LABS: BILIRUBIN,TOTAL 0.4 mg/dL (0.2-1); CREATININE 0.8 mg/dL (0.55-1.3); TOT PROT 7.4 g/dl (6.4-8.2)
[2024-05-28] MEDS ORDERED: PATIENT'S OWN MEDICATION (NON-FORMULARY) (Potassium Chloride [Potassium Chloride] 20 MEQ T PO SCH (10:00)
[2024-05-28] MEDS ORDERED: POTASSIUM CHLORIDE TABS 20 MEQ TABLET.ER (FP) PO SCH (10:00)
[2024-05-28] MEDS: MEMANTINE HCL 5 MG TABLET (UD) PO SCH (10:11)
[2024-05-28] MEDS: metoPROLOL SUCCINATE 25 MG TAB.SR.24H (FP) PO SCH (10:11)
[2024-05-28] MEDS: GABAPENTIN 100 MG CAPSULE PO SCH (10:11)
[2024-05-28] MEDS: amLODIPine BESYLATE 5 MG TABLET (FP) PO SCH (10:11)
[2024-05-29 03:52] VITALS: BP 136/62; PULSE 56; TEMP 97.5
== END 2024-05-29 11:30 | disposition home or self-care (01) ==
LOC: JER 10:46 → JERBED 15:12 → J4W 05-28 04:39
PROVIDERS: ADMIT Internal Medicine; ATTEND Internal Medicine
DX: R00.2 Palpitations (principal); I25.10 Atherosclerotic heart disease of native coronary artery without angina pectoris; R09.02 Hypoxemia; G30.9 Alzheimer's disease, unspecified; I11.9 Hypertensive heart disease without heart failure; F02.80 Dementia in other diseases classified elsewhere, unspecified severity, without behavioral disturbance, psychotic disturbance, mood disturbance, and anxiety; I25.2 Old myocardial infarction; Z85.3 Personal history of malignant neoplasm of breast; Z87.891 Personal history of nicotine dependence; Z88.2 Allergy status to sulfonamides; Z88.8 Allergy status to other drugs, medicaments and biological substances; Z88.5 Allergy status to narcotic agent
CPT/HCPCS: 0241U-QW; 36415; 71045-TC-FY; 71275-TC; 80053; 83735; 84443; 84484; 85025; 87086; 93005; 93010; 93306-TC; 99285-25; G0378; Q9967

== ENCOUNTER 2025-02-16 11:59 | Observation (INO) | payer OTHER ==
[2025-02-16 13:00] LABS: ABSOLUTE IMMATURE GRANULOCYTES 0.02 x10^3/uL (0.0-0.031); BASOPHILS # 0.04 x10^3/uL (0.01-0.08); EOSINOPHIL % 0.4 % (0.7-5.8); EOSINOPHILS # 0.02 x10^3/uL (0.04-0.36); HEMOGLOBIN 13.1 g/dL (11.2-15.7); MCHC 31.2 g/dl (32.2-35.5); MEAN CELL VOLUME 81.4 fl (79.4-94.8); MEAN PLT VOLUME 10.4 fl (9.4-12.3); MONOCYTE # 0.48 x10^3/uL (0.24-0.86); MONOCYTE % 8.4 % (4.7-12.5); PLATELET COUNT 277 x10^3/uL (182-369); RDW 15.7 % (12.5-17.0)
[2025-02-16 13:06] LABS: VENOUS O2 SATURATION 75.6 % (70-80); VENOUS PCO2 30.3 mmHg (38-52); VENOUS PH 7.502 (7.310-7.410)
[2025-02-16 13:08] LABS: INR 1.03 (0.83-1.09); PROTHROMBIN TIME (PATIENT) 11.2 SEC (9.7-13.0)
[2025-02-16 13:10] LABS: ACTIVATED PTT 31.7 SECONDS (25.2-36.5)
[2025-02-16 13:25] LABS: POTASSIUM 5.4 mmol/L (3.5-5.1)
[2025-02-16 13:27] LABS: ALBUMIN 4.5 g/dl (3.4-5.0); CALCIUM 9.9 mg/dL (8.5-10.1)
[2025-02-16 13:28] LABS: BLOOD UREA NITROGEN 12.8 mg/dL (7-18); MAGNESIUM 2.2 mg/dL (1.8-2.4)
[2025-02-16 13:32] LABS: BILIRUBIN,TOTAL 0.6 mg/dL (0.2-1); TOT PROT 8.7 g/dl (6.4-8.2)
[2025-02-16 14:35] LABS: POTASSIUM 3.8 mmol/L (3.5-5.1)
[2025-02-16 14:36] LABS: CALCIUM 9.4 mg/dL (8.5-10.1)
[2025-02-16 14:37] LABS: BLOOD UREA NITROGEN 11.5 mg/dL (7-18)
[2025-02-16 14:40] LABS: CREATININE 0.8 mg/dL (0.55-1.3)
[2025-02-16 14:43] LABS: HCV DIAGNOSTIC IN-HOUSE W/RFLX NON-REACTIVE (NONREACTIVE)
[2025-02-16 14:44] LABS: HIV INTERPRETATION NEGATIVE (NEGATIVE)
[2025-02-16 18:14] VITALS: BMI 23.9
[2025-02-16] MEDS: FUROSEMIDE 40 MG/4 ML INJECTABLE VIAL IVPUSH SCH (18:41)
[2025-02-16] MEDS: HEPARIN NA (PORCINE) 5,000 UNITS/ML 1ML VIAL SQ SCH (21:40)
[2025-02-16] MEDS: ROSUVASTATIN CA 5 MG TABLET PO SCH (21:40)
[2025-02-17] MEDS: POTASSIUM CHLORIDE TABS 20 MEQ TABLET.ER (FP) PO SCH (09:43)
[2025-02-17] MEDS: amLODIPine BESYLATE 5 MG TABLET (FP) PO SCH (09:44)
[2025-02-17] MEDS: metoPROLOL SUCCINATE 25 MG TAB.SR.24H (FP) PO SCH (09:45)
[2025-02-17] MEDS: GABAPENTIN 100 MG CAPSULE PO SCH (09:45)
[2025-02-17] MEDS: MEMANTINE HCL 5 MG TABLET (UD) PO SCH (09:45)
[2025-02-17 11:29] LABS: POTASSIUM 4.2 mmol/L (3.5-5.1)
[2025-02-17 11:39] LABS: ALBUMIN 3.7 g/dl (3.4-5.0); BLOOD UREA NITROGEN 20.7 mg/dL (7-18)
[2025-02-17 11:40] LABS: CALCIUM 9.4 mg/dL (8.5-10.1)
[2025-02-17 11:41] LABS: TOT PROT 7.4 g/dl (6.4-8.2)
[2025-02-17 11:47] LABS: BILIRUBIN,TOTAL 0.7 mg/dL (0.2-1)
[2025-02-18 02:40] VITALS: PULSE 50
[2025-02-18 06:16] VITALS: BP 159/69; RESP 20; TEMP 97.7
[2025-02-18 06:50] LABS: ABSOLUTE IMMATURE GRANULOCYTES 0.01 x10^3/uL (0.0-0.031); BASOPHILS # 0.03 x10^3/uL (0.01-0.08); EOSINOPHIL % 1.5 % (0.7-5.8); EOSINOPHILS # 0.07 x10^3/uL (0.04-0.36); HEMATOCRIT 36.1 % (34.1-44.9); HEMOGLOBIN 11.3 g/dL (11.2-15.7); MCHC 31.3 g/dl (32.2-35.5); MEAN CELL VOLUME 80.9 fl (79.4-94.8); MEAN PLT VOLUME 9.9 fl (9.4-12.3); MONOCYTE % 15.1 % (4.7-12.5); PLATELET COUNT 259 x10^3/uL (182-369); RDW 15.4 % (12.5-17.0)
[2025-02-18 06:52] LABS: POTASSIUM 3.8 mmol/L (3.5-5.1)
[2025-02-18 06:57] LABS: CALCIUM 9.1 mg/dL (8.5-10.1)
[2025-02-18 06:58] LABS: ALBUMIN 3.5 g/dl (3.4-5.0); BLOOD UREA NITROGEN 19.8 mg/dL (7-18)
[2025-02-18 07:01] LABS: CREATININE 0.8 mg/dL (0.55-1.3)
[2025-02-18 07:03] LABS: BILIRUBIN,TOTAL 0.4 mg/dL (0.2-1)
[2025-02-18] MEDS: metoPROLOL SUCCINATE 25 MG TAB.SR.24H (FP) PO SCH (09:13)
== END 2025-02-18 12:51 | disposition home or self-care (01) ==
LOC: JER 11:59 → JERBED 14:43 → J4W 15:29
PROVIDERS: ADMIT Internal Medicine; ATTEND Internal Medicine
PROC: 3E033GC Introduction of Other Therapeutic Substance into Peripheral Vein, Percutaneous Approach (ICD-10-PCS; principal; 2025-02-16)
PROC: 3E023GC Introduction of Other Therapeutic Substance into Muscle, Percutaneous Approach (ICD-10-PCS; 2025-02-16)
DX: R00.2 Palpitations (principal); I50.30 Unspecified diastolic (congestive) heart failure; I10 Essential (primary) hypertension; E78.5 Hyperlipidemia, unspecified; R63.4 Abnormal weight loss; F41.0 Panic disorder [episodic paroxysmal anxiety]; E11.9 Type 2 diabetes mellitus without complications; R42 Dizziness and giddiness; Z85.3 Personal history of malignant neoplasm of breast; Z88.2 Allergy status to sulfonamides; Z88.5 Allergy status to narcotic agent
CPT/HCPCS: 0241U-QW; 36415; 71045-TC-FY; 80048; 80053; 82803; 83735; 83880; 84439; 84443; 84484; 85025; 85610; 85730; 86803; 87389; 93005; 93010; 93306-TC; 96372; 96374; 97116-GP; 97161-GP; 99285-25; G0378; J1644